=== PATIENT | male | born 1955 | race Caucasian/White ===

== ENCOUNTER 2018-03-11 05:58 | Inpatient (IN) | payer OTHER ==
[~2018-03-11 05:58] MED LIST: DiMENhydriNATE IV* 50 MG/ML VIAL IV PUSH PRN; Gabapentin CAP(*) 300 MG PO ONE; Morphine INJ* 2 MG/ML 1 ML SYRINGE (TWO MG - NEW SYRINGE VERSION) IV PRN; Naloxone* 0.4 MG/ML 1 ML VIAL IV PRN; PROCHLORPERAZINE INJ 5 MG/ML 2 ML VIAL IV PRN; Scopolamine 1.5 mg* PATCH TRANSDERM PRN; fentaNYL* 50 MCG/ML 2 ML VIAL (100 MCG VIAL) IV PRN; oxyCODONE/Acetamin 5/325 MG* TAB PO PRN
[2018-03-11] MEDS ORDERED: Buffered Lidocaine 0.9% SYRIN* 5 ML/SYR SYRINGE INTRADERM ONE (06:00)
[2018-03-11] MEDS ORDERED: Dexamethasone TAB* 4 MG PO ONE (06:00)
[2018-03-11] MEDS ORDERED: Ondansetron INJ* 2 MG/ML VIAL ONE ×2 (06:00→06:03)
[2018-03-11] MEDS ORDERED: Famotidine IV* 10 MG/ML 2 ML (20 mg) IV ONE (06:00)
[2018-03-11] MEDS ORDERED: Gabapentin CAP(*) 300 MG ONE (06:02)
[2018-03-11] MEDS ORDERED: Famotidine IV* 10 MG/ML 2 ML (20 mg) ONE (06:02)
[2018-03-11] MEDS ORDERED: Dexamethasone TAB* 4 MG ONE (06:02)
[2018-03-11] MEDS ORDERED: ceFAZolin 2 GM in NS PREMIX(*) 2 GM/100 ML BAG IVPB ONE (06:04)
[2018-03-11] MEDS ORDERED: Ondansetron ODT TAB* 4 MG ONE (06:04)
--- OUTSIDE RECORDS SUMMARY | 2018-03-11 06:04 | XMS REPORT ---
:1955 External Reference #:[id number] Author Organization [facility] Address [address] [facility] [place] [address] [place] [address] Phone [phone] Care Team Providers Name Role Phone Kayden Belle D.O. Primary Care Physician Unavailable Payers Type Date Identification Numbers Payment Provider Subscriber Commercial Effective: Policy Number: [id number] [employer] Americo Nixon 2012 Group Number: [id number] [id number] PayID: [id number] [place] [address] Problems Date Description Provider Status Onset: 09/07/2017 Arthralgia of the pelvic region and Derrek Diaz M.D. Active thigh Onset: 06/29/2014 Supraventricular premature beats Alyssa Schrader M.D. 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 Active Onset: 09/10/2013 Transient cerebral ischemia Alyssa Schrader M.D. Active Onset: 09/10/2013 Paroxysmal supraventricular tachycardia Alyssa Schrader M.D. 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 ETOH Use Drinks Alcoholic Beverages Rarely Smoking Patient is a former smoker quit in 1989 Daily Caffeine Consumes on average 2 cups of regular 2-3 cups daily coffee per day Exercise Type/Frequency Does not exercise Allergies, Adverse Reactions, Alerts Date Description Reaction Status Severity Comments 03/03/2013 Ibuprofen hives active 03/03/2013 Aspirin rash active 07/01/2013 Codeine active 07/04/2013 Atorvastatin myalgias active 09/26/2013 Azithromycin Urticaria, hives active 10/17/2013 Plavix Urticaria, Hives active 12/15/2013 Xyzal chest pain active per patient Medications Medication Date Status Form Strength Qnty SIG Indications Ordering Provider Cyclobenzaprine 09/07/ Active Tablets 10mg 60tab take 1 M25.551 Derrek HCL 2017 s tablet up Jeo, to three M.D. times a day as needed Diclofenac 11/09/ Active Tablets 50mg 1 tablet Alyssa Potassium 2014 daily Fay Schrader Bystolic / Active Tablets 5mg 30tab 1 po qd Unknown 0000 s Sertraline HCL / Active Tablets 50mg 30tab 1 po qd Unknown 0000 s Dicyclomine HCL / Active Capsules 10mg 40cap take one Unknown 0000 s capsule by mouth every six hours as needed Aspirin / Active Chewtabs 81mg 1 by mouth Unknown 0000 every day Omeprazole / Active Capsules 20mg 1 by mouth Unknown 0000 DR every day Meloxicam / Active Tablets 15mg 1 by mouth Unknown 0000 every day Losartan / Active Tablets 50mg 1 by mouth Unknown Potassium 0000 every day Pantoprazole 10/08/ Hx Solution 40mg 60uni 1 by mouth 530.81 Alyssa Sodium 2013 - Rec ts as needed ( Raciel 02/26/ has not M.D. 2018 taken in 2 years) Benadryl Allergy 09/26/ Hx Tablets 25mg 30tab 1-2 po prn Other 2013 - s Ordering 10/06/ Provider 2014 Clopidogrel 09/10/ Hx Tablets 75mg 30tab 1 tab po 435.9 Alyssa Bisulfate 2013 - s daily in am Raciel 10/07/ Fay 2014 Metoprolol 01/27/ Hx Tablets 50mg 30tab 1 po qd Alyssa Succinate ER 2013 - ER 24HR s Raciel 06/11/ Fay 2013 Plavix / Hx Tablets 75mg 30tab 1 po qd Unknown 0000 - s 2013 Atorvastatin / Hx Tablets 10mg 90tab 1 po qd Unknown Calcium 0000 - s 2013 Diovan / Hx Tablets 160mg 90tab 1/2 tab po Unknown 0000 - s daily ( ran 08/27/ out of 2018 medication 1 week ago) Nexium / Hx Capsules 40mg 90cap 1 po qd Unknown 0000 - DR s 2013 Tramadol HCL / Hx Tablets 50mg 100ta 2 tab po Unknown 0000 - bs prn 2013 Pradaxa / Hx Capsules 150mg 180ca po bid Jewel 0000 - santos Rudd, , PHD 2013 Pravastatin / Hx Tablets 10mg 90tab 1 po qd Unknown Sodium 0000 - s (starting 03/09/ on 07/12) 2015 Omeprazole / Hx Capsules 20mg 1 po bid Unknown 0000 - DR 2013 Dicyclomine HCL / Hx Capsules 10mg 30cap 1 tab po Unknown 0000 - s prn 2013 Tylenol Arthritis / Hx Tablets 650mg 100ta 2 by mouth Unknown Pain 0000 - ER bs every 8 07/04/ hours as 2014 needed Levocetirizine / Hx Tablets 5mg 1 po qd Unknown Dihydrochloride 0000 - 2013 Valsartan / Hx Tablets 80mg 1 by mouth Unknown 0000 - every day 2017 Vital Signs Date Vital Result Comment 02/27/2018 Height 74 inches 6'2" Weight 265.00 lb BP Systolic 126 mmHg BP Diastolic 72 mmHg Respiratory Rate 18 /min Pain Level 10 BMI (Body Mass Index) 34.0 kg/m2 10/04/2017 Height 74 inches 6'2" Weight 265.00 lb Heart Rate 80 /min BP Systolic Recheck 130 mmHg BP Diastolic Recheck 84 mmHg Respiratory Rate 16 /min Body Temperature 98.1 F BMI (Body Mass Index) 34.0 kg/m2 09/07/2017 Height 74 inches 6'2" Weight 255.00 lb Heart Rate 80 /min BP Systolic Recheck 132 mmHg BP Diastolic Recheck 84 mmHg Respiratory Rate 16 /min Body Temperature 98.0 F BMI (Body Mass Index) 32.7 kg/m2 01/10/2017 Height 74 inches 6'2" Weight 254.00 lb Heart Rate 80 /min BP Systolic Recheck 130 mmHg BP Diastolic Recheck 84 mmHg Respiratory Rate 16 /min Body Temperature 97.8 F BMI (Body Mass Index) 32.6 kg/m2 03/23/2016 Height 73 inches 6'1" Weight 254.00 lb with shoes Heart Rate 64 /min BP Systolic Sitting 136 mmHg LA reg cuff BP Diastolic Sitting 94 mmHg LA reg cuff BP Systolic Standing 132 mmHg LA reg cuff BP Diastolic Standing 90 mmHg LA reg cuff Respiratory Rate 16 /min BMI (Body Mass Index) 33.5 kg/m2 03/10/2016 Height 73 inches 6'1" Weight 254.00 lb with shoes Heart Rate 70 /min BP Systolic Sitting 136 mmHg LA, Lg cuff BP Diastolic Sitting 84 mmHg LA, Lg cuff BP Systolic Standing 130 mmHg LA BP Diastolic Standing 84 mmHg LA Respiratory Rate 14 /min BMI (Body Mass Index) 33.5 kg/m2 06/29/2014 Height 73 inches 6'1" Weight 256.00 lb w/boots Heart Rate 74 /min BP Systolic Sitting 124 mmHg Ra lg cuff BP Diastolic Sitting 82 mmHg Ra lg cuff BP Systolic Standing 134 mmHg Ra lg cuff BP Diastolic Standing 88 mmHg Ra lg cuff Respiratory Rate 14 /min BMI (Body Mass Index) 33.8 kg/m2 12/15/2013 Height 73 inches 6'1" Weight 254.00 lb with boots Heart Rate 64 /min BP Systolic Sitting 122 mmHg LA lg cuff BP Diastolic Sitting 80 mmHg LA lg cuff BP Systolic Standing 126 mmHg LA lg cuff BP Diastolic Standing 70 mmHg LA lg cuff Respiratory Rate 16 /min BMI (Body Mass Index) 33.5 kg/m2 11/17/2013 Height 73 inches 6'1" Weight 252.00 lb with shoes Heart Rate 70 /min BP Systolic Sitting 120 mmHg Ra lg cuff BP Diastolic Sitting 84 mmHg Ra lg cuff BP Systolic Standing 120 mmHg Ra lg cuff BP Diastolic Standing 82 mmHg Ra lg cuff Respiratory Rate 16 /min BMI (Body Mass Index) 33.2 kg/m2 10/17/2013 Height 73 inches 6'1" Weight 246.00 lb Heart Rate 72 /min BP Systolic Sitting 126 mmHg LA reg cuff BP Diastolic Sitting 88 mmHg LA reg cuff BP Systolic Standing 132 mmHg LA BP Diastolic Standing 92 mmHg LA Respiratory Rate 16 /min BMI (Body Mass Index) 32.5 kg/m2 10/08/2013 Height 73 inches 6'1" Weight 240.00 lb Heart Rate 80 /min BP Systolic 138 mmHg right, lg cuff BP Diastolic 94 mmHg right, lg cuff BP Systolic Sitting 138 mmHg left BP Diastolic Sitting 88 mmHg left BP Systolic Standing 112 mmHg rightt BP Diastolic Standing 80 mmHg rightt Respiratory Rate 20 /min BMI (Body Mass Index) 31.7 kg/m2 09/26/2013 Height 73 inches 6'1" Weight 242.00 lb Heart Rate 72 /min BP Systolic Sitting 124 mmHg LA lg cuff BP Diastolic Sitting 84 mmHg LA lg cuff BP Systolic Standing 126 mmHg BP Diastolic Standing 82 mmHg Respiratory Rate 14 /min BMI (Body Mass Index) 31.9 kg/m2 09/10/2013 Height 64 inches 5'4" Weight 243.00 lb Heart Rate 60 /min BP Systolic Sitting 114 mmHg Ra large cuff BP Diastolic Sitting 80 mmHg Ra large cuff BP Systolic Standing 112 mmHg Ra BP Diastolic Standing 76 mmHg Ra Respiratory Rate 16 /min BMI (Body Mass Index) 41.7 kg/m2 08/26/2013 Heart Rate 64 /min BP Systolic Sitting 128 mmHg BP Diastolic Sitting 76 mmHg Respiratory Rate 16 /min 07/04/2013 Height 72 inches 6'0" Weight 228.50 lb Heart Rate 64 /min BP Systolic Sitting 130 mmHg left arm, large cuff BP Diastolic Sitting 74 mmHg left arm, large cuff BP Systolic Standing 126 mmHg left arm, large cuff BP Diastolic Standing 74 mmHg left arm, large cuff Respiratory Rate 16 /min BMI (Body Mass Index) 31.0 kg/m2 07/01/2013 Heart Rate 64 /min BP Systolic Sitting 108 mmHg BP Diastolic Sitting 76 mmHg Respiratory Rate 16 /min Results Test Date Test Result H/L Range Note Laboratory test 03/16/2016 Surgical Pathology SEE RESULT BELOW 1 finding 1 SEE RESULT BELOW Name: AMERICO NIXON : [address]: Alyssa Schrader MD Acct: [id number] Unit: [id number] AGE: 60 Location: [facility] Re03/16/16 SEX: M Status: REG REF SPEC: [id number] TIFFANY: 03/16/[address]: Alyssa Schrader MD REQ: [id number] RECD: 03/16/16 STATUS: SOUT _ ORDERED: LEVEL I FINAL DIAGNOSIS Event monitor, removal: Foreign body (event monitor) (Gross diagnosis). PRE-OPERATIVE DIAGNOSIS Presence of other cardiac implant POST-OPERATIVE DIAGNOSIS Event monitor explant. GROSS DESCRIPTION The specimen is received fresh with no source identified, and consists of a 6.1 x 1.8 x 0.7 cm silver metallic medical coder. The following inscription is identified: [employer] REVEAL XT MODEL 9529 SN [id number]. Per established hospital medical staff protocol, no tissue is submitted. Gross only. Signed (signature on file) Jade Tierney MD 04/26 0905 END OF REPORT * ML=Testing performed at Main Lab DEPARTMENT OF PATHOLOGY, [address] [place] [address] Charles Mcgill M.D. Director [facility] # [id number] Procedures Date CPT Code Description Status 12/20/2017 01833 Sleep Study Unattended,HRT Rate,Oxygen Sat,Resp Completed Effort/Airflow 01/10/2017 25049 Nasal Endoscopy, Diagnostic Completed 03/16/2016 08622 Removal Loop Recorder Completed 03/10/2016 67566 Interrogation Device Eval,Implantable Loop Recorder Completed System 06/09/2014 90101 Interrogation Device Eval,Implantable Loop Recorder Completed System 12/15/2013 44295 Interrogation Device Eval,Implantable Loop Recorder Completed System 10/15/2013 68946 ECHO Stress Test Incl Perf Contiuous ekg Monitoring Completed W/Phys Superv 10/08/2013 67611 Interrogation Device Eval,Implantable Loop Recorder Completed System 09/08/2013 95388 Interrogation Device Eval,Implantable Loop Recorder Completed System 07/09/2013 29441 Interrogation Device Eval,Implantable Loop Recorder Completed System 07/04/2013 25611 EKG Tracing & Interpretation Completed 06/03/2013 68388 Loop Recorder Device Eval W/Iterative Adj Implant Loop Completed Recorder 04/17/2013 21532 Interrogation Device Eval,Implantable Loop Recorder Completed System 03/24/2013 32322 Interrogation Device Eval,Implantable Loop Recorder Completed System 02/21/2013 50173 Implant Cardiac Loop Recorder Completed 02/05/2013 86021 Cardiac Event Monitor Completed 01/29/2013 97814 Holter Monitoring 24 HR New Completed 01/27/2013 48966 Stress Test Completed 01/24/2013 47275 EKG, Interpretation Only Completed 01/23/2013 40591 Color Flow Doppler/Interp & Reprt Completed 01/23/2013 78244 Pulse Wave/Continuous-Interp.RPT Completed 01/23/2013 23433 Echocardiography, Transesophageal, Real Time W/Image 2D Completed W/W/O M-M Encounters Type Date Location Provider CPT E/M Dx Office Visit 10/04/2017 [facility] Derrek Diaz 47570 M25.551 8:15a Of [facility] AT [facility] M85.88 Office Visit 09/07/2017 1:00p [facility] Derrek Diaz 48485 M25.551 Of [facility] AT [facility] [place] M85.88 Office Visit 01/10/2017 1:00p [facility] Of [facility] Ozzie Mcdowell M.D. 69018 J31.0 AT [facility] R09.82 Office Visit 03/10/2016 3:15p [facility] Alyssa Schrader M.D. 68037 Z95.818 [facility] I63.40 I10 Office Visit 06/29/2014 3:30p [facility] Alyssa Schrader M.D. 62385 427.61 [facility] Office Visit 12/15/2013 3:30p [facility] Of YVONNE Fishman 01591 427.0 [facility] 401.9 435.9 785.1 Office Visit 10/17/2013 1:30p [facility] YVONNE Fishman 02394 530.81 427.0 434.11 Office Visit 10/08/2013 9:00a [facility] YVONNE Fishman 36773 786.50 530.81 995.3 Office Visit 09/26/2013 3:00p [facility] YVONNE Fishman 73644 401.9 995.3 436 Office Visit 09/10/2013 8:00a [facility] Alyssa Schrader M.D. 81081 427.0 [facility] 435.9 401.9 Office Visit 08/26/2013 2:30p [facility] Amos Judge, 29290 434.11 Services Of [facility] M.D. Office Visit 07/04/2013 9:45a [facility] Alyssa Schrader M.D. 67002 427.0 785.1 401.9 Office Visit 07/01/2013 9:30a [facility] Am[facility] Judge 62538 434.11 Services Of [facility] M.D. Office Visit 02/11/2013 10:00a [facility] Amos Judge 13033 434.11 Services Of [facility] M.D. Office Visit 01/24/2013 7:38a [facility], Jh Henderson, 33342 435.9 [facility] 401.9 278.00 530.81 Office Visit 01/23/2013 7:37a [facility], 77507 435.9 [facility] N[facility] 401.9 278.00 530.81 Office Visit 01/22/2013 10:29a [facility] Amos Judge, 13671 435.8 Services Of [facility] Office Visit 01/22/2013 7:37a [facility], 77266 435.9 [facility] N[facility] 401.9 278.00 530.81 Plan of Care Future Appointment(s):03/11/2018 7:30 am - Derrek Diaz M.D.04/16/2018 11: 15 am - Derrek Diaz M.D. at [facility] AT [facility]
[2018-03-11] MEDS ORDERED: fentaNYL* 50 MCG/ML 2 ML VIAL (100 MCG VIAL) ONE (07:02)
[2018-03-11] MEDS ORDERED: Midazolam* 1 MG/ML 10 ML VIAL (10 MG) ONE (07:03)
[2018-03-11] MEDS ORDERED: KETAMINE HCL* 50 MG/ML 10 ML VIAL ONE (07:03)
[2018-03-11] MEDS ORDERED: Tranexamic Acid 1,000 MG/10 ML SDV IV ONE (07:15)
[2018-03-11] MEDS ORDERED: ceFAZolin 1 GM in Dextrose (*) 1 GM/50 ML BAG IVPB ONE (07:18)
[2018-03-11] MEDS ORDERED: Bupivacaine 0.25% EPI 200,000* 30 ML SDV ONE (07:34)
[2018-03-11] MEDS ORDERED: Bupivacaine 0.5% SDV PF* 30ML VIAL ONE (08:58)
[2018-03-11] MEDS ORDERED: Scopolamine 1.5 mg* PATCH ONE (08:58)
[2018-03-11] MEDS ORDERED: Lidocaine 2% PF * 5 ML VIAL ONE (08:58)
[2018-03-11] MEDS ORDERED: Phenylephrine INJ* 10 MG/ML 1 ML VIAL (10 MG) ONE (08:58)
[2018-03-11] MEDS ORDERED: Propofol* 500 MG/50 ML BTL ONE ×2 (08:58→10:59)
[2018-03-11] MEDS ORDERED: hydrALAZINE IV* 20 MG/ML VIAL ONE (09:05)
[2018-03-11] MEDS ORDERED: Bacitracin IV* 50,000 UNITS INJ ONE (09:58)
[2018-03-11] MEDS ORDERED: Bacitracin OINTMENT* 0.5% 0.5 oz TUBE ONE (10:00)
[2018-03-11] MEDS ORDERED: oxyCODONE TAB* 5 MG TAB PO PRN (11:53)
[2018-03-11] MEDS ORDERED: Ondansetron INJ* 2 MG/ML VIAL IV PRN (11:53)
[2018-03-11] MEDS ORDERED: diPHENhydraMINE PO* 25 MG PO PRN (11:53)
[2018-03-11] MEDS ORDERED: diPHENhydraMINE IV* 50 MG/ML 1 ml VIAL (BENADRYL) IV PRN (11:53)
[2018-03-11] MEDS ORDERED: Magnesium Hydroxide LIQ* 30 ML UDC PO PRN ×2 (11:53)
[2018-03-11] MEDS ORDERED: Ondansetron ODT TAB* 4 MG PO PRN (11:53)
[2018-03-11] MEDS ORDERED: Cyclobenzaprine TAB* 10 MG PO PRN (11:53)
[2018-03-11] MEDS ORDERED: Morphine VIAL* 4 MG/ML VIAL (1 ml vial) IV PRN ×2 (11:53→21:00)
[2018-03-11] MEDS ORDERED: CMC:Lactase Enzyme (NF) 3,000 UNIT TAB PO PRN (12:00)
[2018-03-11] MEDS ORDERED: traMADol TAB* 50 MG PO SCH (12:00)
[2018-03-11] MEDS ORDERED: Acetaminophen TAB* 325 MG PO SCH (12:00)
[2018-03-11] MEDS ORDERED: D5W 1/2 NS 1000 ML BAG* 1,000 ML IV SCH (12:00)
[2018-03-11] MEDS ORDERED: Heparin VIAL(*) 5000 UNITS/ML VIAL (FIVE THOUSAND) SUBCUT SCH (12:00)
--- NOTE | 2018-03-11 12:49 | RAD ---
Indication: Postop bilateral knee joint replacement. Comparison: February 27, 2018 radiographs. Technique: RIGHT knee: Bilateral AP and crosstable lateral views of the knees. views. Report: RIGHT knee prosthesis in place. No periprosthetic fracture evident. Normal articular alignment. Anterior cutaneous sanam. Fluid and gas within the joint space and anterior soft tissues. LEFT total knee prosthesis in place. Up to 4 mm lateral position of the tibial plateau component relative to the jackson bone margins. Negative for periprosthetic fracture. Anterior cutaneous sanam. Fluid and gas within the joint space and anterior soft tissues. IMPRESSION: #. Postsurgical change of bilateral knee replacement as described. #. Negative for periprosthetic fracture.
[2018-03-11] MEDS ORDERED: oxyCODONE/Acetamin 5/325 MG* TAB PO PRN (15:37)
[2018-03-11] MEDS ORDERED: Acetaminophen TAB* 325 MG PO PRN (15:40)
--- NOTE | 2018-03-11 16:48 | CONS ---
CC: Dr. Diaz; Dr. Belle * CONSULTATION REPORT: DATE OF CONSULT: 03/11/18 REQUESTING PHYSICIAN IN CONSULT: Dr. Diaz. ATTENDING PHYSICIAN WHILE IN THE HOSPITAL: Dr. Rc Villegas (report dictated by Bernard Henderson NP). PRIMARY CARE PROVIDER: Dr. Belle. REASON FOR CONSULT: Evaluation of medical management of comorbid medical problems. HISTORY OF PRESENT ILLNESS: I will refer you to Dr. Diaz's H and P for further details. In short, Mr. Garner is a 62-year-old male patient, who has a history of TIA, hypertension, hyperlipidemia, GERD, degenerative joint disease , anxiety, and depression. He presents to Dr. Diaz's service with significant bilateral knee pain for some time, found to have severe arthritis. He had failed conservative therapy and he elected to have bilateral total knee replacement done today which he underwent. Because of his medical complexities , we were asked to evaluate in consult. He was evaluated in the PACU. The patient says that he is feeling well. He denies having any chest pain or shortness of breath. Says he does not feel lightheaded or dizzy. He denies having any nausea. He denies any vomiting. There is no abdominal discomfort. He says he cannot feel his legs just yet. He did have spinal anesthesia, but he says he is not really having any pain currently, but because of his complexity, again we were asked to evaluate in consult. PAST MEDICAL HISTORY: Significant for: 1. TIA. 2. Hypertension. 3. Hyperlipidemia. 4. GERD. 5. Anxiety. 6. Degenerative joint disease. 7. Depression. PAST SURGICAL HISTORY: 1. He has had hemorrhoidectomy. 2. He has had shoulder arthroscopy. 3. He has had plantar fascial release. 4. Carpal tunnel. 5. He has had right knee arthroscopy. 6. Right elbow surgery. MEDICATIONS: Home medications include: 1. Difolnec 50 mg p.o. at bedtime. 2. Zoloft 50 mg daily. 3. Omeprazole 20 mg daily. 4. Bystolic 5 mg a day. 5. Cozaar 50 mg at bedtime. 6. Lactaid 3000 units p.o., take as directed. 7. Aspirin 81 mg daily. ALLERGIES TO MEDICATIONS: Include CODEINE, IBUPROFEN, TRAMADOL, AMOXICILLIN, AZITHROMYCIN, and LACTOSE. FAMILY HISTORY: He says his mother has severe spinal stenosis and lives in a mcc, but otherwise healthy. Father had a history of dementia and stomach tumor, he has . SOCIAL HISTORY: He does not smoke, rarely drinks alcohol. Surrogate decision maker is his . REVIEW OF SYSTEMS: There is no documented fever. He denies having any significant weight change. There is no double vision. He denies having any ear discharge. He denied having any rhinorrhea. There is no sore throat, no thyroid enlargement. Denies having any chest pain. There is no orthopnea, there is no nocturnal dyspnea. He denies having any abdominal pain. No nausea , no vomiting. No dysuria, there is no frequency. No seizure, no loss of consciousness. No pruritus. Review of 14 systems completed. All others negative. PHYSICAL EXAM: Vital Signs: Blood pressure 111/58, pulse 63, respirations 15, O2 sat 97%, and temperature 97.9. General: At this time, Ms. Garner is a 62- year- old male patient. He is sitting in the ED stretcher. He does not appear to be in any acute distress. He appears to be well nourished and well developed. HEENT: Head: Atraumatic and normocephalic. Eyes: EOMs are intact. Sclerae anicteric and not pale. Neck was supple. Throat: Oral mucosa appears to be moist. No oropharyngeal erythema. Heart: Sounds S1, S2. He had a regular rate and rhythm. No murmurs, rubs, or gallops. Lungs: Clear to auscultation bilaterally. There were no wheezes, rales, or rhonchi. Abdomen was soft, flat, nontender. Bowel sounds were present. Extremities: He is unable to move his lower extremities as he did have a spinal anesthesia. He has good distal CSM checks. He has no peripheral edema. He is moving the upper extremities with 5/5 strength. Neurologically, he is awake, he is alert, and he is oriented x3. Tongue is midline. Correspondence Representative were equal. He had no gross focal deficits. His skin is grossly intact. DIAGNOSTIC STUDIES/LAB DATA: Preop labs: WBC 6.7, RBC of 5.49, hemoglobin of 16.7, hematocrit of 48, platelet count of 176. INR 0.94, PTT of 31.6. His sodium was 141, potassium was 4.4, chloride of 106, bicarb 31, BUN 22, creatinine 1.12, his glucose was 84. Urine was obtained, it was negative preop. He did have a preop EKG showing normal sinus rhythm rate of 59, no ST elevations or T-wave inversions were noted. He had a preop chest x-ray which showed hyperinflation consistent with COPD with no active cardiopulmonary disease. Old medical records were reviewed. ASSESSMENT AND PLAN: Mr. Garner is a 62-year-old male patient, he is evaluated in the PACU setting, after having bilateral total knee replacement. We were asked to evaluate in consult given his medical complexity. My recommendations at this point are: 1. Status post bilateral total knee replacement. I will defer the management to Dr. Diaz and his team. 2. History of transient ischemic attack. Continue with secondary prevention with aspirin. 3. Hypertension. Continue his current medical regimen with exception of holding the Cozaar. We will continue his Bystolic withhold parameters. 4. Hyperlipidemia, he is currently not on statin. He can follow with his PCP, in the setting of transient ischemic attack, may consider this and aggressive lipid control but again I will defer management to his PCP. 5. History of gastroesophageal reflux disease. Continue PPI therapy. 6. Anxiety and depression. Continue his current medical regimen. 7. Degenerative joint disease. Continue p.r.n. pain medications and follow with his PCP. 8. DVT prophylaxis. He is high risk. He has been placed on heparin subcu. 9. Code status. Full code. 10. Fluids, electrolytes, and nutrition. I recommend a heart healthy diet. TIME SPENT: On the consult was 60 minutes, greater than half the time was spent [id number] with the patient obtaining my history and physical, other half time was spent going over the plan of care with the patient and implementing plan of care. I did discuss the plan of care with my attending, Dr. Villegas; he is in agreement. BERNARD HENDERSON, [place] [id number]/[facility] #: [id number] ALIA
[2018-03-11] MEDS ORDERED: Warfarin TAB(*) 10 MG PO ONE (17:00)
[2018-03-11] MEDS: CMC:Nebivolol TAB (NF) 2.5 MG TAB PO SCH (17:16)
[2018-03-11] MEDS: ceFAZolin 1 GM in Dextrose (*) 1 GM/50 ML BAG IVPB SCH (17:26)
[2018-03-11] MEDS ORDERED: NON FORMULARY MED* (Losartan Potassium [Cozaar] 50 MG) PO SCH (18:00)
[2018-03-11] MEDS ORDERED: Nebivolol TAB (NF) 2.5 MG TAB PO SCH (18:00)
[2018-03-11] MEDS ORDERED: Morphine INJ* 4 MG/ML 1 ML SYRINGE (NEW SYRINGE VERSION) IV ONE (21:00)
[2018-03-11] MEDS: oxyCODONE/Acetamin 5/325 MG* TAB PO PRN (21:14)
[2018-03-11] MEDS: Docusate CAP* 100 MG PO SCH (21:15)
[2018-03-11] MEDS: oxyCODONE TAB* 5 MG TAB PO PRN (23:20)
[2018-03-12] MEDS: oxyCODONE/Acetamin 5/325 MG* TAB PO PRN ×6 (01:16→23:25)
[2018-03-12] MEDS: ceFAZolin 1 GM in Dextrose (*) 1 GM/50 ML BAG IVPB SCH ×2 (01:20→08:46)
--- NOTE | 2018-03-12 03:18 | OP ---
DATE OF OPERATION: 03/11/18 - ROOM #343 DATE OF : 53 SURGEON: Derrek Diaz MD COOKIE BREAKER: Dulce Lopez RPA ANESTHESIA: Spinal/epidural, regional and sedation. PRE-OP DIAGNOSIS: Osteoarthritis, bilateral knees. POST-OP DIAGNOSIS: Osteoarthritis, bilateral knees. OPERATIVE PROCEDURE: Right and left total knee arthroplasty. INDICATIONS: Mr. Garner is a 62-year-old male who has been having bilateral knee pain for several years. The right knee had given him more troubles and he had undergone a knee arthroscopy elsewhere back in January 2018. He was told the arthritis in the joint would probably need a knee replacement. He has had worsening pain since the arthroscopy and has been unable to get back to work and other activities. He presented to the office interested in a second opinion. X-ray showed that he was [id number] in the patellofemoral joint, and had significant narrowing in the medial compartment of both knees. He reports that his left knee was about 6 months behind how his right knee failed. He is very interested in knee replacement surgery. We did talk some about a partial replacement where patellofemoral replacement would be quicker and easier for him to recover from, but he did not want to come back for another surgery in 2 to 3 years. I discussed with him and that a total knee arthroplasty should work well to decrease his pain and improve his function. This way, we will just do one surgery and, hopefully, this would work well for him for the next 20 years. Risk of surgery such as infection, scar formation, stiffness, DVT, pulmonary embolism, hardware failure and continued pain were some of the risks discussed. I also tried to advise him to go with one knee at a time as bilateral knees, I believe are much harder to rehab and recover from. He reports though that with work and trying to get back to activities, he would like to have both done, so he has one rehab and then would not have to come back and would not have to extend the time that he is out of work. He had been declared medically optimized and wished to proceed. ESTIMATED BLOOD LOSS: Less than 50 cc. COMPLICATIONS: None. HARDWARE: Franco non-cemented total knee replacement, #6 femur and #6 tibia with 9 mm poly and 35 mm oblong patella both right and left were the same sizes. DESCRIPTION OF PROCEDURE: The patient had an adductor canal block on the right and left placed in the holding area. He was then brought back to the OR and spinal epidural anesthesia was established. Sanders catheter was placed. Tourniquet was placed over the right and left proximal thighs and both were used during the case. Total tourniquet time on the right was 70 minutes and on the left was 77 minutes. Bilateral knees were prepped and then draped. Esmarch was used to exsanguinate the right as this was one that hurt him more and tourniquet was raised. Midline incision was made centered about the patella carried down to the medial side of the tibial tubercle. Incision was carried down through the skin and subcutaneous bursa. Small bleeders encountered were ligated using electrocautery. Sharp parapatellar arthrotomy was made and quite a bit of thick clear yellowish joint fluid was encountered. Soft tissues were sharply elevated from the medial side of the tibia and the fat pad was sharply excised. He was seen where he was bone on bone in the patellofemoral joint and there was significant wear in the medial compartment. Patella measured 24 mm in thickness and a nice 8 to 9 mm cut was taken. Patella was easily subluxated laterally, the knee was flexed up. Step drill was used in the femoral canal and the intramedullary guide was placed. Guide was adjusted until it was parallel with the epicondyle and then this was pinned into place. Distal femoral cutting guide was then pinned into place and I had mentioned how the cutting guide was taking quite a bit from the medial side and almost none from the lateral side, cut was taken and then was noticed that this was the left cutting block and not the right. Right cutting block was placed and this one sat much better and femoral cut was redone. At this time, I was able to come all the way down into the notch and take some of the lateral femoral condyle as is supposed to take. There was about a 5 mm width of the medial femoral condyle that was angled downward because of the incorrect angle, but I thought this was an insignificant amount of contact area. Femur was sized and he has had perfectly for a 6. This corroborated well with preoperative templating. Six cutting guide was pinned into place and the inferior and posterior femoral cuts followed by the chamfer cuts were all taken. Nice cuts were obtained. Attention was turned to the proximal tibia. Step drill was use at the tibial canal and the medullary guide was placed. Cutting guide was placed and adjusted until it was parallel with the anterior spine of the tibia and drop elzbieta and right to the base of the second metatarsal. Cutting guide was then pinned into place and the tibial cut was taken. Nice cut was obtained. Meniscus was also sharply excised. Spacer block was then set and he seemed to fit in nicely with a 9 for both flexion and extension. Tibia sat nicely with a 6 and proximal tibia and the tibia was punched. Number 6 femur was impacted into place and the notch cut was finished and the drill holes were placed. Trial instrumentation was placed and he came out nicely into full extension and easily flexed passed on 135 degrees as I could bring his heel all the way back to his buttock. Patella tracking was perfect. Patella was sized nicely at a 35. Holes were drilled. Instrumentation was called for and the tibia followed by the femur and patella were all impacted into place. He was trialed again with a 9 and had the same wonderful motion and stability. Nine polyethylene was called for and then snapped into place. The knee was copiously pulse lavaged. Posterior condyles were injected with 10 cc of 0.25% Marcaine on both the right side and left-side and additional 10 cc was injected in the lateral gutter. Parapatellar arthrotomy was closed using interrupted #1 Vicryl sutures and the tourniquet was let down. No significant bleeding was encountered. Subcutaneous tissues were reapproximated with 2-0 Vicryl. Skin was closed using sanam. Knee just wrapped and attention was turned to the left knee. Discussion was had with anesthesia, knee was stable and doing well so it appeared we would be safe with proceeding. Esmarch was used to exsanguinate the left leg and midline incision was made. Similarly parapatellar arthrotomy was made and not as much of clear yellowish thick joint fluid was encountered but again just with incising the capsule there was still a gush. Soft tissue sharply elevated from the medial side and fat pad was sharply excised. Patella cut was taken and patella was easily subluxated laterally. Drill was used to open intramedullary canal in the femur and the intramedullary guide was placed. Guide was adjusted until the rotation appeared perfect and the edges were parallel with the epicondyles. Distal femoral cutting guide was pinned to place and distal femoral cut was taken. It appeared nice cut was obtained. He sized nicely for a 6 and a 6 cutting block was placed. Anterior and posterior femoral cuts followed by the chamfer cuts were all taken . Attention was turned to the tibia. Step drill was used to open the tibial canal and symmetric guide was placed. Outrigger was assembled and adjusted until it appeared it would take 2 mm from medial side and the alignment then drop elzbieta sat nicely right along the anterior spine of the tibia. Tibial cut was taken, but it could be seen where he had a little more sclerotic bones and I skived upwards a little bit. This was moved downwards for a 2 mm re-cut. With the sizer then placed, he was still just a little bit snug in flexion and with extension he was perfect , but I thought this was a little bit tight. Proximal tibia was taken for another 2 mm re-cut and now that in extension he just had a little bit of wobble that I like. Tibia was sized and he sat nicely for a 6 proximal tibia was punched. Number 6 femur was placed and the notch cut was finished and the drill holes were drilled. Six trial was placed and he came out nicely in a full extension and flexed quite well. Trial instrumentation was removed. The knee was copiously pulse lavaged. Patella also have been sized and he sat again for 35. Instruments were called for and the tibia followed by femur and patella were all impacted into place. 9 mm polyethylene was snapped into place. The knee was again closely pulse lavaged. Parapatellar arthrotomy was repaired using interrupted # 1 Vicryl sutures. The tourniquet was let down. A little bit of bleeding was encountered but there was no pulsatile flow. Knee was again pulse lavaged and the subcutaneous tissues were approximated 2-0 Vicryl, skin was closed using sanam. Sterile dressing and Cryo/Cuff were applied to both knees. The patient was then awakened, stable, and transferred to the recovery room. [id number]/[facility] #: [id number] ALIA
[2018-03-12] MEDS: oxyCODONE TAB* 5 MG TAB PO PRN ×4 (03:53→16:30)
[2018-03-12 05:02] LABS: Hematocrit 41 % (42-52); Hemoglobin 13.8 g/dl (14.0-18.0); Mean Platelet Volume 8.2 um3 (7.4-10.4); Platelet Count 180 10^3/ul (150-450)
[2018-03-12 05:07] LABS: INR 1.25 (0.77-1.02)
[2018-03-12 05:18] LABS: EGFR Non-African American 66.2 (>60)
[2018-03-12] MEDS: Vitamin THERAPEUTIC TAB PO SCH (08:47)
[2018-03-12] MEDS: Omeprazole CAP* 20 MG PO SCH (08:48)
[2018-03-12] MEDS: Docusate CAP* 100 MG PO SCH ×2 (08:48→19:59)
[2018-03-12] MEDS: Sertraline* 50 MG TAB PO SCH (08:48)
--- NOTE | 2018-03-12 11:54 | PN ---
Progress Note - Progress Note Date of Service: 03/12/18 SOAP: Subjective: [Pt was seen this morning sitting up in bed. He states that he had increased pain last night and was having trouble sleeping. He states that today he is feeling a bit better and finds that with the new pain medication that it is more manageable. He denies any nausea, vomiting, SOB or chest pain. ] Objective: [General: A&Ox3, NAD MSK: BLE: Dressings are both clean, dry and intact. +df/pf bilat. calves are soft and non tender. 2+ DP and PT pulse bilaterally. NVI distally. ] Vital Signs Temp 98.6 F 03/12/18 07:23 Pulse 69 03/12/18 07:23 Resp 16 03/12/18 10:11 BP 124/69 03/12/18 07:23 Pulse Ox 97 03/12/18 07:23 Intake & Output 03/11/18 03/12/18 03/12/18 18:59 06:59 18:59 Intake Total 3360 2207 Output Total 1500 2075 Balance 1860 132 Intake: IV Fluids 3300 977 CEFAZOLIN 3GM 200 D5W 1/2 NS 977 LR 3000 TRANEXAMIC ACID 1GM 100 IVPB 110 ABX - CEFAZOLIN 110 Oral 60 1120 Output: Urine 850 Sanders 1500 1225 Other: # Bowel Movements 0 Assessment: [POD 1 bilateral total knee arthroplasty ] Plan: [- Continue with current pain medication - PT/OT - INR of 1.25, 8mg of coumadin tonight]
[2018-03-12] MEDS: Heparin VIAL(*) 5000 UNITS/ML VIAL (FIVE THOUSAND) SUBCUT SCH ×2 (12:10→20:03)
[2018-03-12] MEDS ORDERED: Ketorolac INJ* 15 MG/ML 1 ML VIAL IV PUSH PRN (14:37)
--- NOTE | 2018-03-12 14:55 | PN ---
Subjective Date of Service: 03/12/18 Interval History: Mr. Garner reports doing well. His pain is well controlled. Sanders catheter removed this AM, has voided since. Has been OOB to did PT earlier today. Denies chest pain, palpitations or SOB. He has no complaints today. Family History: Unchanged from Admission Social History: Unchanged from Admission Past Medical History: Unchanged from Admission Objective Active Medications: Acetaminophen (Tylenol Tab*) 975 mg PO Q8H PRN PRN Reason: FEVER/PAIN Aspirin (Aspirin Ec Tab*) 81 mg PO QPM [facility] Bisacodyl (Dulcolax Supp*) 10 mg HI DAILY PRN PRN Reason: constipation Cyclobenzaprine HCl (Flexeril Tab*) 10 mg PO TID PRN PRN Reason: SPASMS Last Admin: 03/11/18 20:13 Dose: 10 mg Diphenhydramine HCl (Benadryl Iv*) 25 mg IV Q6H PRN PRN Reason: itching Diphenhydramine HCl (Benadryl Po*) 25 mg PO Q6H PRN PRN Reason: itching Docusate Sodium (Colace Cap*) 100 mg PO BID [facility] Last Admin: 03/12/18 08:48 Dose: 100 mg Heparin Sodium (Porcine) (Heparin Vial(*)) 5,000 units SUBCUT Q8H [facility] Last Admin: 03/12/18 12:10 Dose: 5,000 units Dextrose/Sodium Chloride (D5w 1/2 Ns 1000 Ml Bag*) 1,000 mls @ 100 mls/hr IV PER RATE [facility] Last Admin: 03/12/18 01:18 Dose: 100 mls/hr Ketorolac Tromethamine (Toradol Inj*) 15 mg IV PUSH Q6H PRN PRN Reason: PAIN - MODERATE Lactase (Lactaid Fast Act (Nf)) 3,000 unit PO .SEE INSTRUCTIONS PRN; Protocol PRN Reason: Lactose intolerant Lactulose (Lactulose*) 30 ml PO BID [facility] Last Admin: 03/12/18 08:49 Dose: 30 ml Magnesium Hydroxide (Milk Of Magnesia Liq*) 30 ml PO BID PRN PRN Reason: CONSTIPATION Magnesium Hydroxide (Milk Of Magnesia Liq*) 30 ml PO Q6H PRN PRN Reason: constipation Morphine Sulfate (Morphine Vial*) 4 mg IV Q2H PRN PRN Reason: PAIN - BREAKTHROUGH Last Admin: 03/11/18 22:45 Dose: 4 mg Multivitamins (Theragran Tab*) 1 tab PO DAILY [facility] Last Admin: 03/12/18 08:47 Dose: 1 tab Nebivolol (Bystolic Tab (Nf)) 5 mg PO QPM [facility] Last Admin: 03/11/18 17:16 Dose: 5 mg Omeprazole (Prilosec Cap*) 20 mg PO QAM [facility] Last Admin: 03/12/18 08:48 Dose: 20 mg Ondansetron HCl (Zofran Inj*) 4 mg IV Q6H PRN PRN Reason: nausea Ondansetron HCl (Zofran Odt Tab*) 4 mg PO Q6H PRN PRN Reason: NAUSEA Oxycodone HCl (Roxycodone Tab*) 10 mg PO Q4H PRN PRN Reason: PAIN - SEVERE Last Admin: 03/12/18 12:09 Dose: 10 mg Oxycodone/Acetaminophen (Percocet 5/325 Tab*) 1 tab PO Q4H PRN PRN Reason: PAIN - MODERATE Last Admin: 03/11/18 17:16 Dose: 1 tab Oxycodone/Acetaminophen (Percocet 5/325 Tab*) 2 tab PO Q4H PRN PRN Reason: PAIN - MODERATE TO SEVERE Last Admin: 03/12/18 14:30 Dose: 2 tab Pharmacy Profile Note (Coumadin Daily Reminder*) 1 note FOLLOW UP 1700 [facility] Last Admin: 03/11/18 17:17 Dose: 1 note [facility] ([facility]*) [facility] Last Admin: 03/12/18 08:48 Dose: 50 mg Warfarin Sodium (Coumadin Tab(*)) 8 mg PO ONCE@1700 [facility]; Protocol Stop: 03/12/18 17:01 Vital Signs - 8 hr 03/12/18 03/12/18 03/12/18 07:23 07:58 08:00 Temperature 98.6 F Pulse Rate 69 Respiratory 16 16 16 Rate Blood Pressure 124/69 (mmHg) O2 Sat by Pulse 97 Oximetry 03/12/18 03/12/18 03/12/18 08:01 10:11 11:55 Temperature 99.0 F Pulse Rate 66 Respiratory 16 16 16 Rate Blood Pressure 131/77 (mmHg) O2 Sat by Pulse 95 Oximetry 03/12/18 03/12/18 12:09 14:30 Temperature Pulse Rate Respiratory 16 16 Rate Blood Pressure (mmHg) O2 Sat by Pulse Oximetry Oxygen Devices in Use Now: None Appearance: Appears comfortable and in NAD Eyes: No Scleral Icterus, PERRLA Ears/Nose/Mouth/Throat: Clear Oropharnyx, Mucous Membranes Moist Neck: NL Appearance and Movements; NL JVP, Trachea Midline Respiratory: Symmetrical Chest Expansion and Respiratory Effort, Clear to Auscultation Cardiovascular: NL Sounds; No Murmurs; No JVD, RRR Abdominal: NL Sounds; No Tenderness; No Distention Extremities: No Edema Neurological: Alert and Oriented x 3 Nutrition: Taking PO's Result Diagrams: 03/12/18 04:47 03/12/18 04:47 Additional Lab and Data: . Microbiology and Other Data: . Diagnostic Imaging: . EKG Data: . Assess/Plan/Problems-Billing Assessment: A 62 y/o male with PMH HTN, HLD, TIA, depression and osteoarthritis, who is POD# 1 s/p elective bilateral knee replacement, clinically stable and doing well. - Patient Problems (1) Status post bilateral knee replacements Current Visit: Yes Status: Acute Comment: - Management per ortho team - Continue PT - Pain well controlled (2) HTN (hypertension) Current Visit: Yes Status: Acute Comment: - Continue Bystolic, hold Cozaar - Normotensive today (3) HLD (hyperlipidemia) Current Visit: Yes Status: Acute Comment: - Not on statin therapy at this time, will defer to PCP to intiate statin therapy upon discharge (4) History of TIA (transient ischemic attack) Current Visit: Yes Status: Acute Comment: - Continue secondary prevention with ASA (5) Depression Current Visit: Yes Status: Acute Comment: - Continue Zoloft (6) GERD (gastroesophageal reflux disease) Current Visit: Yes Status: Acute Comment: - Continue PPI coverage (7) DVT prophylaxis Current Visit: Yes Status: Acute Comment: - SubQ Heparin, bridging to Warfarin per ortho team - Daily INR checks (8) Full code status Current Visit: Yes Status: Acute Status and Disposition: Inpatient. Anticipate discharge to home per ortho team once medically stable
[2018-03-12] MEDS ORDERED: Warfarin TAB(*) 4 MG PO ONE (17:00)
[2018-03-12] MEDS ORDERED: Aspirin EC TAB* 81 MG TAB.EC PO SCH (18:00)
[2018-03-12] MEDS: CMC:Nebivolol TAB (NF) 2.5 MG TAB PO SCH (18:30)
[2018-03-13] MEDS: oxyCODONE/Acetamin 5/325 MG* TAB PO PRN ×2 (03:29→07:29)
[2018-03-13] MEDS: Heparin VIAL(*) 5000 UNITS/ML VIAL (FIVE THOUSAND) SUBCUT SCH (03:30)
[2018-03-13 07:07] LABS: Hematocrit 38 % (42-52); Hemoglobin 13.2 g/dl (14.0-18.0); Mean Platelet Volume 8.3 um3 (7.4-10.4); Platelet Count 174 10^3/ul (150-450)
[2018-03-13 07:14] LABS: INR 3.54 (0.77-1.02)
[2018-03-13] MEDS: Omeprazole CAP* 20 MG PO SCH (07:29)
[2018-03-13] MEDS: Docusate CAP* 100 MG PO SCH (08:48)
[2018-03-13] MEDS: Sertraline* 50 MG TAB PO SCH (08:48)
[2018-03-13] MEDS: Vitamin THERAPEUTIC TAB PO SCH (08:48)
[2018-03-13] MEDS: oxyCODONE TAB* 5 MG TAB PO PRN (09:30)
--- NOTE | 2018-03-13 10:22 | PN ---
Progress Note - Progress Note Date of Service: 03/13/18 SOAP: Subjective: []Patient seen and examined at bedside. He feels well without chest pain, shortness of breath, dizziness, nausea or leg numbness. Knee pain is well controlled at rest and increases with activity. Nursing reports of irregular heartbeat Objective: []General: NAD Bilateral knee incisions are clean, dry and intact without erythema or discharge. DF/PF intact. Sensation intact distally. Dp2+, capillary refill less than two seconds distally. Calves supple and nontender without erythema, edema or palpable cords Assessment: []POD 2 bilateral total knee arthroplasty ] Plan: [Continue with current pain medication PT/OT stop heparin. 2 mg coumadin today Continue Incentive spirometry Vital Signs Temp 98.9 F 03/13/18 07:33 Pulse 85 03/13/18 07:33 Resp 18 03/13/18 09:30 BP 115/64 03/13/18 07:33 Pulse Ox 94 03/13/18 11:01 Intake & Output 03/12/18 03/13/18 03/13/18 18:59 06:59 18:59 Intake Total 1160 360 210 Output Total 100 675 Balance 1060 -315 210 Intake: IV Fluids 980 D5W 1/2 NS 980 IVPB 55 ABX - CEFAZOLIN 55 Oral 125 360 210 Output: Urine 100 675 Other: # Bowel Movements 0 0 Laboratory Last Values Hgb 13.2 g/dl (14.0-18.0) L 03/13/18 06:36 Hct 38 % (42-52) L 03/13/18 06:36 Plt Count 174 10^3/ul (150-450) 03/13/18 06:36 MPV 8.3 um3 (7.4-10.4) 03/13/18 06:36 INR (Anticoag Therapy) 3.54 (0.77-1.02) H 03/13/18 06:36 Sodium 135 mmol/L (135-145) 03/12/18 04:47 Potassium 4.7 mmol/L (3.5-5.0) 03/12/18 04:47 Chloride 103 mmol/L (101-111) 03/12/18 04:47 Carbon Dioxide 29 mmol/L (22-32) 03/12/18 04:47 Anion Gap 3 mmol/L (2-11) 03/12/18 04:47 BUN 14 mg/dL (6-24) 03/12/18 04:47 Creatinine 1.12 mg/dL (0.67-1.17) 03/12/18 04:47 Est GFR ( Amer) 80.1 (>60) 03/12/18 04:47 Est GFR (Non-Af Amer) 66.2 (>60) 03/12/18 04:47 BUN/Creatinine Ratio 12.5 (8-20) 03/12/18 04:47 Glucose 170 mg/dL (70-100) H 03/12/18 04:47 Calcium 8.5 mg/dL (8.6-10.3) L 03/12/18 04:47
[2018-03-13] MEDS ORDERED: Bisacodyl SUPP* 10 MG SUPP PR PRN (11:53)
[2018-03-13 12:11] VITALS: BP 124/50
--- NOTE | 2018-03-14 04:15 | DS ---
DISCHARGE SUMMARY: DATE OF ADMISSION: 03/11/18 DATE OF DISCHARGE: 03/13/18 PROVIDER: Dr. Derrek Diaz.* (DICTATED BY YVONNE GOMEZ) MANAGER ICU: YVONNE Garcia. OPERATIVE PROCEDURE: Right and left total knee arthroplasties. PRE-OP DIAGNOSIS: Osteoarthritis, bilateral knees. INDICATION: Mr. Garner is a 62-year-old male who has been having severe bilateral knee pain for several years. He failed conservative management and has elected to undergo bilateral total knee arthroplasties. HOSPITAL COURSE: The patient was admitted to [facility] on . He underwent bilateral total knee arthroplasties without complication. He recovered briefly and then was transferred to the short-stay surgical unit in stable condition. Postop day 1, he was well-appearing, in no acute distress. Bilateral dressings were clean, dry, and intact. Dorsiflexion and plantarflexion intact bilaterally. 2+ dorsalis pedis pulse bilaterally. Neurovascularly intact. Vital signs, 98.6 temperature, pulse 69, respiratory rate 16, blood pressure 124/69, pulse ox 97. He was also seen by hospitalist service during his stay. Past medical co-management including hypertension, history of TIA, GERD, depression. There are no changes to his therapy at this time. On postop day 2, he is well-appearing, in no acute distress. Bilateral knee incisions clean, dry, and intact. Had dressing changed, without any erythema or discharge. Dorsiflexion and plantarflexion intact. Sensation intact distally. DP pulse 2+. Capillary refill is less than 2 seconds distally. Calves supple and nontender without erythema, edema, or palpable cords. PHYSICAL EXAMINATION: Vital Signs: Temperature 98.9, pulse 85, respiratory rate 18, blood pressure 115/64, and pulse ox 94%. LABORATORY DATA: Hemoglobin 13.2, hematocrit 38. INR 3.54. Sodium 135, potassium 4.7. The patient was deemed to be medically and orthopedically stable for discharge to [facility] at [facility]. DISCHARGE MEDICATIONS: 1. Lexapro 5 mg p.o. q.p.m. 2. Diclofenac 50 mg p.o. q.p.m. 3. Sertraline 50 mg p.o. q.a.m. 4. Omeprazole 20 mg p.o. q.a.m. 5. Losartan 50 mg p.o. q.p.m. 6. Aspirin 81 mg p.o. q.p.m. 7. Lactase 3000 units p.r.n. 8. Acetaminophen 975 mg p.o. q. 8 hours p.r.n. 9. Docusate 100 mg p.o. b.i.d. p.r.n. 10. Percocet 5/325 one to two tablets every 4 to 6 hours as needed for pain, max daily dose of 10. 11. Morphine 2 mg tabs 1 to 3 tabs daily, dose depends on INR. DISCHARGE PLAN: The patient will be weightbearing as tolerated. He will require dressing changes to bilateral knees daily with antibiotic ointment, gauze, and Pedro bandage. Regular diet. Continue physical therapy and occupational therapy. Exercise as shown. Nurse will remove in 10 to 12 days and do wound checks. Nurse to draw blood for INR on Mondays and . Coumadin dosing 03/13/18 will be 2 mg. Please have PMRU dose Coumadin thereafter if there is an INR drop. Pain control with Percocet 5/325 one to two tabs every 4 to 6 hours as needed for pain, max daily dose of 10. Follow up with Dr. Diaz in 4 weeks or sooner. If there are any concerns, please call for an appointment. YVONNE GOMEZ [id number]/[facility] #: [id number] ALIA
[2018-03-14] MEDS ORDERED: Scopolamine PATCH Remove* 1 NOTE MISC PATCH OFF ONE (05:37)
== END 2018-03-13 11:25 | DRG 462 ==
LOC: AA 05:58 → SSU 14:14
PROVIDERS: ADMIT Orthopaedic Surgery; ATTEND Orthopaedic Surgery
PROC: 0SRC0JA Replacement of Right Knee Joint with Synthetic Substitute, Uncemented, Open Approach (ICD-10-PCS; 2018-03-11)
PROC: 0SRD0JA Replacement of Left Knee Joint with Synthetic Substitute, Uncemented, Open Approach (ICD-10-PCS; principal; 2018-03-11 07:30)
DX: M17.0 Bilateral primary osteoarthritis of knee (principal); I47.1 Supraventricular tachycardia; I10 Essential (primary) hypertension; E78.5 Hyperlipidemia, unspecified; K21.9 Gastro-esophageal reflux disease without esophagitis; F41.9 Anxiety disorder, unspecified; M19.90 Unspecified osteoarthritis, unspecified site; I49.1 Atrial premature depolarization; F32.9 Major depressive disorder, single episode, unspecified; Z82.69 Family history of other diseases of the musculoskeletal system and connective tissue; Z86.73 Personal history of transient ischemic attack (TIA), and cerebral infarction without residual deficits; Z79.82 Long term (current) use of aspirin; Z79.899 Other long term (current) drug therapy; Z88.6 Allergy status to analgesic agent; Z88.1 Allergy status to other antibiotic agents; Z88.5 Allergy status to narcotic agent; Z88.8 Allergy status to other drugs, medicaments and biological substances; Z87.891 Personal history of nicotine dependence
CPT/HCPCS: 36415; 80048; 85014; 85018; 85049; 85610; 90686; 93005; A9270-GY; J0360; J0690; J1644; J2250; J2270; J2405; J2704; J3010; J8540

== ENCOUNTER 2018-03-13 10:09 | Inpatient (IN) | payer OTHER ==
[2018-03-13] MEDS: oxyCODONE/Acetamin 5/325 MG* TAB PO PRN (14:40)
[2018-03-13] MEDS: Aspirin EC TAB* 81 MG TAB.EC PO SCH (17:31)
[2018-03-13] MEDS: CMC:Nebivolol TAB (NF) 2.5 MG TAB PO SCH (17:31)
[2018-03-13] MEDS: Senna TAB PO PRN (20:26)
[2018-03-13] MEDS: Docusate CAP* 100 MG PO SCH (20:26)
[2018-03-13] MEDS: Magnesium Hydroxide LIQ* 30 ML UDC PO PRN (20:28)
--- NOTE | 2018-03-13 23:42 | HP ---
ADMISSION HISTORY AND PHYSICAL: DATE OF ADMISSION: 03/13/18 REASON FOR ADMISSION: Bilateral total knee replacement. HISTORY OF PRESENT ILLNESS: Americo Garner is a 62-year-old male. He has a medical history significant for TIA, which occurred in January of 2013. He takes a baby aspirin daily. He also has a history of gastroesophageal reflux disease. The patient had significant pain in his knees. His right knee was worse than his left. However, as time went on and he began to favor the left knee. The left knee became bad too. As a result, he had significant bilateral pain. He saw Dr. Diaz. He had tried and failed conservative treatment including injections. He had x-rays of his bilateral knees showing medial joint space narrowing and spurring present. It was felt that he had significant arthritis and would benefit from a total knee replacement. He was admitted to [facility] on 03/11/18 and underwent a bilateral total replacement that day. He was started on Coumadin for DVT prophylaxis. Today, his INR was 3.54. Otherwise, he was fairly stable from a medical point of view. His Cozaar was held, but he resumed his beta-ivanna Bystolic. He was felt to have Physical Therapy and Occupational Therapy needs. He is now being admitted for inpatient rehab so that he might return to independent living. PAST MEDICAL HISTORY: Significant for the aforementioned TIA in 2012. He has a history of gastroesophageal reflux disease and a history of anxiety. He has hypertension, hyperlipidemia also. CURRENT MEDICATIONS: Include: 1. Baby aspirin. 2. He is on Bystolic. 3. Prilosec. 4. Percocet for pain control. 5. Zoloft. 6. As mentioned, he is normally on Cozaar, but this is being held. ALLERGIES: To CODEINE, IBUPROFEN, TRAMADOL, AMOXICILLIN, ZITHROMAX, AND LACTOSE. SOCIAL HISTORY: He is a nonsmoker, nondrinker. 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 He lives with his in a 2-story house, but he can stay on 1 level. REVIEW OF SYSTEMS: The patient reports no current shortness of breath or chest pain. PHYSICAL EXAMINATION VITAL SIGNS: The patient's temperature is 98.4, blood pressure is 119/61, pulse is 94, respirations 16. HEENT: His extraocular movements were intact. Tongue is midline. NECK: Supple. LUNGS: Sound clear to auscultation bilaterally. HEART: Sounds are regular. S1 and S2 are audible. ABDOMEN: Soft, nontender. EXTREMITIES: He has wounds on both legs that appear to be clean and dry. Peripheral pulses were intact. NEUROLOGIC: Sensation was intact. Deep tendon reflexes were 2+ and symmetric in the biceps, triceps, brachioradialis, patellar tendons, and ankle jerks. Muscle strength 5/5 in both upper and lower extremities. Gait: He ambulates without assistive devices. No abnormalities are noted. ASSESSMENT: Bilateral total knee replacement. PLAN: Integrate him into a comprehensive and therapeutic rehab program with the following goals: 1. Physical Therapy will see the patient. They are going to work on functional transfer training, ambulation training with a walker. 2. Occupational Therapy will see the patient, work on his activities of daily living including toileting and toilet transfers. 3. Coumadin for DVT prophylaxis. We are going to hold his Coumadin tonight because of his INR being 3.54. 4. Adequate analgesia. 5. His bowels will be regulated. 6. rehabilitation services director will be closely involved to make sure that any services and equipment the patient requires are in place prior to discharge. 7. Family training as appropriate. 8. Home with appropriate services. ESTIMATED LENGTH OF STAY: 7 to 10 days. [id number]/[facility] #: [id number] [facility]
[2018-03-14] MEDS: Omeprazole CAP* 20 MG PO SCH (05:54)
[2018-03-14] MEDS: Acetaminophen TAB* 325 MG PO PRN (05:54)
[2018-03-14 06:35] LABS: INR 4.31 (0.77-1.02)
[2018-03-14] MEDS: Sertraline* 50 MG TAB PO SCH (08:54)
[2018-03-14] MEDS: oxyCODONE/Acetamin 5/325 MG* TAB PO PRN ×3 (08:55→19:55)
[2018-03-14] MEDS: Docusate CAP* 100 MG PO SCH ×2 (08:55→19:54)
[2018-03-14] MEDS: Aspirin EC TAB* 81 MG TAB.EC PO SCH (17:26)
[2018-03-14] MEDS: CMC:Nebivolol TAB (NF) 2.5 MG TAB PO SCH (17:26)
--- NOTE | 2018-03-14 19:05 | PN ---
Progress Note Date of Service: 03/14/18 Note: JOANN NIXON was visited. Therapy notes read and reviewed. His INR has continued to rise and was 4.31 today. Will hold on Vitamin K for now and check INR in am. He has been moving fairly well though limited in distance. Current Medications: Active Medications Generic Name Dose Route Start Last Admin Trade Name Freq PRN Reason Stop Dose Admin Acetaminophen 650 mg 03/13/18 12:27 03/14/18 05:54 Tylenol Tab* PO 650 mg Q6H PRN Administration FEVER/PAIN Aspirin 81 mg 03/13/18 18:00 03/14/18 17:26 Aspirin Ec Tab* PO 81 mg 1800 JANICE Administration Docusate Sodium 100 mg 03/13/18 21:00 03/14/18 08:55 Colace Cap* PO 100 mg BID JANICE Administration Magnesium Hydroxide 30 ml 03/13/18 12:27 03/13/18 20:28 Milk Of Magnesia Liq* PO 30 ml Q6H PRN Administration CONSTIPATION Nebivolol 5 mg 03/13/18 18:00 03/14/18 17:26 Bystolic Tab (Nf) PO 5 mg 1800 JANICE Administration Omeprazole 20 mg 03/14/18 06:00 03/14/18 05:54 Prilosec Cap* PO 20 mg 0600 JANICE Administration Oxycodone/Acetaminophen 1 tab 03/13/18 12:31 03/14/18 13:11 Percocet 5/325 Tab* PO 1 tab Q4H PRN Administration PAIN - MODERATE TO SEVERE Oxycodone/Acetaminophen 2 tab 03/13/18 12:34 03/13/18 14:40 Percocet 5/325 Tab* PO 2 tab Q4H PRN Administration PAIN - SEVERE Senna 2 tab 03/13/18 12:27 03/13/18 20:26 Senokot Tab* PO 2 tab BEDTIME PRN Administration CONSTIPATION Sertraline HCl 50 mg 03/14/18 09:00 03/14/18 08:54 Zoloft* PO 50 mg DAILY JANICE Administration Vital Signs: Vital Signs Temp Pulse Resp BP Pulse Ox 98.1 F 85 18 127/70 97 03/14/18 16:34 03/14/18 16:34 03/14/18 17:38 03/14/18 16:34 03/14/18 17:41 Lab Results: Laboratory Results - last 24 hr 03/14/18 06:19 INR (Anticoag Therapy) 4.31 H Exam: GENERAL: Alert, oriented, in no distress LUNGS: Clear bilaterally HEART: Reg rhythm ABDOMEN: Soft, + BS EXTREMITIES: Knee wounds c/d/i NEUROLOGIC: oriented. Sensation intact. Muscle strength about 4/5 in LEs able to dorsiflex bilaterally Assessment/Plan: 1. Bilateral TKR: WBAT. PT/OT 2. History of TIA in 2013: ASA 3. Depression: Zoloft 4. DVT Prophylaxis: Supratherapeutic INR so will hold Coumadin 5. Advanced Directives: Full Code 03/14/18 19:03
[2018-03-14] MEDS: Senna TAB PO PRN (19:55)
[2018-03-15] MEDS: Omeprazole CAP* 20 MG PO SCH (05:46)
[2018-03-15 08:36] LABS: ABS Basophils 0 10^3/ul (0-0.2); ABS Eosinophils 0.1 10^3/ul (0-0.6); ABS Lymphocytes 0.6 10^3/ul (1.0-4.8); ABS Monocytes 0.7 10^3/ul (0-0.8); ABS Neutrophils 6.6 10^3/ul (1.5-7.7); ABS Nucleated RBC 0 10^3/ul; Eosinophil % 1.4 % (0-6); Hematocrit 36 % (42-52); Hemoglobin 12.4 g/dl (14.0-18.0); Lymphocyte % 7.1 % (25-47); Mean Corpuscular HGB Conc 34 g/dl (31-36); Mean Corpuscular Hemoglobin 30 pg (27-31); Mean Corpuscular Volume 87 fL (80-94); Mean Platelet Volume 7.4 um3 (7.4-10.4); Nucleated Red Blood Cells % 0.1; Platelet Count 220 10^3/ul (150-450); Red Blood Count 4.15 10^6/ul (4.00-5.40); Red Cell Distribution Width 14 % (10.5-15)
[2018-03-15 08:41] LABS: INR 2.33 (0.77-1.02)
[2018-03-15 08:55] LABS: EGFR Non-African American 81.1 (>60)
[2018-03-15] MEDS: Sertraline* 50 MG TAB PO SCH (10:09)
[2018-03-15] MEDS: Docusate CAP* 100 MG PO SCH ×2 (10:10→20:23)
[2018-03-15] MEDS: oxyCODONE/Acetamin 5/325 MG* TAB PO PRN ×3 (10:10→20:23)
--- NOTE | 2018-03-15 12:41 | PMRUTEAM ---
PMRU: Team Meeting Current Status: Nursing: Current Status Skin Deviations [Buttocks] Other Skin Deviations [Bilateral Incision Knee] Skin Deviation Description [ healed Buttocks] Skin Deviation Description [ s/p bilateral total knee replacements Bilateral Knee] Physical Therapy: Current Status Bed Mobility Assistance Supervision,Mod Assist Transfer Moblility Assistance Supervision Transfer/Bed Mobility Rolling Walker Recommended Devices Transfer Mobility Comment OOB S x 1. mod x 1 into bed Ambulation Assistance Supervision Ambulation Assistive Devices Rolling Walker Number of Feet Patient 50' Ambulated Ambulation Comment slow and steady step to type gait. Stairs Assistance Not Tested Stairs Recommended Devices Two Rails Number of Stairs 3 Curb Not Tested Occupational Therapy: Current Status Upper Body Dressing Supervision Lower Body Dressing Contact Guard Assist Bathing Min Assist Toileting Min Assist,2 Person Assist Toilet Transfer Min Assist,2 Person Assist Shower Transfer Contact Guard Assist,Mod Assist Eating Ind with Adaptive Equip Rec Therapy: Current Status Summary of Assessment and Pt. was open to conversation - pleasant and Clinical Impression cooperative. Pt. identified with interests and involvement prior to admission. Pt. was with his and she contributed to our conversation as well. Pt. was open to continued leisure visits. Treatment Goals Pt. will engage in leisure activities while on the unit. Treatment Plan Provide RT services and encourage involvement. Social Work: Current Status Discharge Plan return home with home care svs and family support Potential for Family Training pt's is involved and supportive Anticipated Discharge Home Destination Discharge With home care svs and family support Goals: Physical Therapy: Initial Goals Bed Mobility Assistance Independent Transfer Mobility Assistance Independent Transfer/Bed Mobility Rolling Walker Recommended Devices Ambulation Independent Ambulation Recommended Devices Rolling Walker Ambulation Distance 150 Stairs Assistance Contact Guard Assist Stair Recommended Devices One Rail Number of Stairs 6 Home Exercise Program Independent Assistance Physical Therapy: Updated Goals Bed Mobility Assistance Independent Transfer Mobility Assistance Independent Transfer/Bed Mobility Rolling Walker Recommended Devices Ambulation Assistance Independent Ambulation Assistive Devices Rolling Walker Ambulation Distance (ft) 150 Stairs Assistance Independent Stairs Recommended Devices One Rail,Two Rails Number of Stairs 6 Home Exercise Program Independent Assistance Occupational Therapy: Initial Goals Goals to be Completed in (Days 7-10 ) Upper Body Bathing Routine Independent Lower Body Bathing Routine Modified Independent with Upper Body Dressing Routine Independent Lower Body Dressing Routine Modified Independent with Toilet Hygeine and Clothing Modified Independent with Management Routine Toilet Transfer Routine Modified Independent with Step-In Shower Transfer Modified Independent with Routine Functional Transfers for ADL Modified Independent with Grooming Routine Independent Feeding Routine Modified Independent with Social Work: Goals Discharge Plan return home with home care svs and family support Potential for Family Training pt's is involved and supportive Anticipated Discharge Home Destination Discharge With home care svs and family support Care Plan: Care Plan ADL's - Improve/Maintain Start: 03/13/18 14:56 Freq: DAILY Status: Active Target: Protocol: Activity Type Activity Date Activity User E-Sign Co-Sign Detail Recorded Client Recorded Date Recorded By Document 03/14/18 15:40 [id number] [id number] 03/14/18 15:40 [id number] 03/14/18 15:40 PMRU Outcome: ADL's/ADL Transfers Orders/Interventions Occupational Therapy Evaluation & Treatment Communication Tool in Patient Room Device Yes Address Deficits Secondary To: Elias TKA Patient to receive OT 5x/wk for 60-120 Therex min/day Self Care Management Group Therapy UE/LE ADL's with Assist Yes: Mo ADL Transfers with Assist Yes: Mo Toileting: Transfers,Clothing Management Yes: Mo ,Hygeine w/Assist Light Kitchen/Laundry w/Assist No Progression Toward Outcome/Goals Progressing Outcome/Goals Met Pt participated well in treatment session, reported increased pain after LEs with knees in flexed position on commode during commode use and completion of bathing/ dressing, however reported improvement in pain once seated in recliner chair with LEs elevated. Foot stool placed in room for positioning to increase comfort on commode as well as to increase options for changing positions of LEs to decrease stiffness, pt and verbalized understanding, nursing notified as well. DVT Prophylaxis- Improve/Maintain Start: 03/13/18 14:24 Freq: QSHIFT Status: Active Target: Protocol: Activity Type Activity Date Activity User E-Sign Co-Sign Detail Recorded Client Recorded Date Recorded By Document 03/15/18 00:48 [id number] 03/15/18 00:48 [id number] 03/15/18 00:48 PMRU Outcome: DVT Prophylaxis Outcome/Goals Remains Free of DVT Complies with DVT Prophylaxis /Treatment Demonstrates Knowledge of DVT Prevention/ Treatment TEDS Stockings on Every AM, Off at HS Progression Toward Outcome/Goals Progressing Discharge Planning - Improve/Maintain Start: 03/13/18 14:24 Freq: DAILY Status: Active Target: Protocol: Activity Type Activity Date Activity User E-Sign Co-Sign Detail Recorded Client Recorded Date Recorded By Document 03/15/18 00:48 [id number] 03/15/18 00:48 [id number] 03/15/18 00:48 PMRU Outcome: Discharge Planning Update Patient Family No Outcome/Goals Demonstrates Understanding of Discharge Plan Progression Toward Outcome/Goals Progressing Education-Improve/Maintain Start: 03/13/18 14:24 Freq: QSHIFT Status: Active Target: Protocol: Activity Type Activity Date Activity User E-Sign Co-Sign Detail Recorded Client Recorded Date Recorded By Document 03/15/18 00:48 [id number] [email or web address] 03/15/18 00:48 [id number] 03/15/18 00:48 PMRU Outcome: Education Outcome/Goals Encourage Questions Progression Toward Outcome/Goals Progressing /GI-Improve/Maintain Start: 03/13/18 14:24 Freq: QSHIFT Status: Active Target: Protocol: Activity Type Activity Date Activity User E-Sign Co-Sign Detail Recorded Client Recorded Date Recorded By Document 03/15/18 00:48 [id number] 03/15/18 00:48 [id number] 03/15/18 00:48 PMRU Outcome: Genitourinary/ Gastrointestinal Genitourinary- Outcome/Goals Maintain/ Achieve Urinary Continence Remain Free of Hospital- Acquired UTI Gastrointestinal-Outcome/Goals Maintain/ Achieve Bowel Regularity in Accordance with Pt's Baseline Prevent Constipation Laxatives as Ordered Progression Toward Outcome/Goals - Progressing Progression Toward Outcome/Goals - GI Progressing Medication Administration Start: 03/13/18 14:24 Freq: QSHIFT Status: Active Target: Protocol: Activity Type Activity Date Activity User E-Sign Co-Sign Detail Recorded Client Recorded Date Recorded By Document 03/15/18 00:48 [id number] 03/15/18 00:48 [id number] 03/15/18 00:48 PMRU Outcome: Medication Administration Assess Patient Knowledge/Teach Med Yes Education for all Meds Outcome/Goals Demonstrates Understanding Progression Towards Outcome/Goals Progressing Is Patient Going Home on Lovenox? No Mobility- Improve/Maintain Start: 03/13/18 16:33 Freq: DAILY Status: Active Target: Protocol: Activity Type Activity Date Activity User E-Sign Co-Sign Detail Recorded Client Recorded Date Recorded By Document 03/13/18 16:33 [id number] 03/13/18 16:34 [id number] 03/13/18 16:33 PMRU Outcome: Mobility Physical Therapy Evaluation and Yes Treatment Activity OOB with Assistance Yes: Ax2 WBAT Yes: WBAT Device Yes: FWW Assistance Yes: ModAx2 Patient to be seen 5x/wk for 60-120 min/ Therex day for: Mobility Training Gait Training W/C Mobility Balance Outcome/Goals Maintain/ Achieve Baseline Mobility Status Improve Mobility Status Demonstrates Proper Use of Assistive Devices Free from Complications of Immobility Bed Mobility Yes: Ind Transfers Yes: Mod I with FWW Gait x ft Yes: Mod I with FWW x150ft Up/Down Stairs Yes: CGA x6 steps with 1 rail With HEP Yes Pain/Comfort- Improve/Maintain Start: 03/13/18 14:24 Freq: QSHIFT Status: Active Target: Protocol: Activity Type Activity Date Activity User E-Sign Co-Sign Detail Recorded Client Recorded Date Recorded By Document 03/15/18 00:48 [id number] 03/15/18 00:48 [id number] 03/15/18 00:48 PMRU Outcome: Pain/Comfort Outcome/Goals Demonstrates Knowledge and Use of Available Comfort Measures Achieves Acceptable Comfort/Pain Level as Determined by Patient/Condit Maintain Comfort Level Allowing Patient to Fully Participate in Rehab Progression Toward Outcome/Goals Progressing Outcome/Goals Met Comment pt denied pain Safety- Improve/Maintain Start: 03/13/18 14:24 Freq: QSHIFT Status: Active Target: Protocol: Activity Type Activity Date Activity User E-Sign Co-Sign Detail Recorded Client Recorded Date Recorded By Document 03/15/18 00:48 [id number] [id number] 03/15/18 00:48 [id number] 03/15/18 00:48 PMRU Outcome: Safety Outcome/Goals Remain Free of Injury or Harm Prevent Falls/ Injury Progression Toward Outcome/Goals Not Progressing Outcome/Goals Met Comment BA armed Skin- Improve/Maintain Start: 03/13/18 14:24 Freq: QSHIFT Status: Active Target: Protocol: Activity Type Activity Date Activity User E-Sign Co-Sign Detail Recorded Client Recorded Date Recorded By Document 03/15/18 00:48 [id number] 03/15/18 00:48 [id number] 03/15/18 00:48 PMRU Outcome: Skin Skin Risk Level Medium Skin Orders Dressing Change Outcome/Goals Maintain/ Improve Skin Intergrity Free from Decubitus Surgical Incisions Healing Progression Toward Outcome/Goals Progressing Medicine Note: Length of Stay: 10 days Anticipated Discharge Destination: Home Tentative Discharge Date: 03/26/18 Discharged to: Home
--- NOTE | 2018-03-15 15:51 | PN ---
Progress Note Date of Service: 03/15/18 Note: JOANN NIXON was visited. Therapy notes read and reviewed. Patient was discussed in interdisciplinary plan of care rounds. He has been a little shaky walking and has trouble getting into bed. INR now therapeutic. Will resume Coumadin, check INR in am Current Medications: Active Medications Generic Name Dose Route Start Last Admin Trade Name Freq PRN Reason Stop Dose Admin Acetaminophen 650 mg 03/13/18 12:27 03/14/18 05:54 Tylenol Tab* PO 650 mg Q6H PRN Administration FEVER/PAIN Aspirin 81 mg 03/13/18 18:00 03/14/18 17:26 Aspirin Ec Tab* PO 81 mg 1800 JANICE Administration Docusate Sodium 100 mg 03/13/18 21:00 03/15/18 10:10 Colace Cap* PO 100 mg BID JANICE Administration Magnesium Hydroxide 30 ml 03/13/18 12:27 03/13/18 20:28 Milk Of Magnesia Liq* PO 30 ml Q6H PRN Administration CONSTIPATION Nebivolol 5 mg 03/13/18 18:00 03/14/18 17:26 Bystolic Tab (Nf) PO 5 mg 1800 JANICE Administration Omeprazole 20 mg 03/14/18 06:00 03/15/18 05:46 Prilosec Cap* PO 20 mg 0600 JANICE Administration Oxycodone/Acetaminophen 1 tab 03/13/18 12:31 03/15/18 13:23 Percocet 5/325 Tab* PO 1 tab Q4H PRN Administration PAIN - MODERATE TO SEVERE Oxycodone/Acetaminophen 2 tab 03/13/18 12:34 03/13/18 14:40 Percocet 5/325 Tab* PO 2 tab Q4H PRN Administration PAIN - SEVERE Senna 2 tab 03/13/18 12:27 03/14/18 19:55 Senokot Tab* PO 2 tab BEDTIME PRN Administration CONSTIPATION Sertraline HCl 50 mg 03/14/18 09:00 03/15/18 10:09 Zoloft* PO 50 mg DAILY JANICE Administration Warfarin Sodium 4 mg 03/15/18 17:00 Coumadin Tab(*) PO DAILY@1700 [facility] Protocol Vital Signs: Vital Signs Temp Pulse Resp BP Pulse Ox 98.7 F 87 16 116/64 96 03/15/18 15:06 03/15/18 15:06 03/15/18 15:10 03/15/18 15:06 03/15/18 15:06 Lab Results: Laboratory Results - last 24 hr 03/15/18 03/15/18 03/15/18 08:28 08:28 08:29 WBC 8.0 RBC 4.15 Hgb 12.4 L Hct 36 L MCV 87 MCH 30 MCHC 34 RDW 14 Plt Count 220 MPV 7.4 Neut % (Auto) 82.8 Lymph % (Auto) 7.1 L [place] % (Auto) 8.4 H Eos % (Auto) 1.4 Baso % (Auto) 0.3 Absolute Neuts (auto) 6.6 Absolute Lymphs (auto) 0.6 L Absolute Monos (auto) 0.7 Absolute Eos (auto) 0.1 Absolute Basos (auto) 0 Absolute Nucleated RBC 0 Nucleated RBC % 0.1 INR (Anticoag Therapy) 2.33 H Sodium 136 Potassium 3.9 Chloride 101 Carbon Dioxide 30 Anion Gap 5 BUN 23 Creatinine 0.94 Est GFR ( Amer) 98.1 Est GFR (Non-Af Amer) 81.1 BUN/Creatinine Ratio 24.5 H Glucose 112 H Calcium 8.8 Total Bilirubin 0.90 AST 16 ALT 11 Alkaline Phosphatase 60 Total Protein 6.2 L Albumin 3.3 Globulin 2.9 Albumin/Globulin Ratio 1.1 Exam: GENERAL: Alert, oriented, in no distress LUNGS: Clear bilaterally HEART: Reg rhythm ABDOMEN: Soft, + BS EXTREMITIES: Knee wounds c/d/i NEUROLOGIC: oriented. Sensation intact. Muscle strength about 4/5 in LEs able to dorsiflex bilaterally Assessment/Plan: 1. Bilateral TKR: WBAT. PT/OT 2. History of TIA in 2012: ASA/Bystolic. Will likely resume Cozaar 3. Depression: Zoloft 4. DVT Prophylaxis: INR therapeutic, will resume Coumadin 5. Advanced Directives: Full Code 03/15/18 15:51
[2018-03-15] MEDS ORDERED: Warfarin TAB(*) 4 MG PO SCH (17:00)
[2018-03-15] MEDS: Aspirin EC TAB* 81 MG TAB.EC PO SCH (17:52)
[2018-03-15] MEDS: CMC:Nebivolol TAB (NF) 2.5 MG TAB PO SCH (17:53)
[2018-03-16] MEDS: oxyCODONE/Acetamin 5/325 MG* TAB PO PRN ×4 (03:00→19:50)
[2018-03-16] MEDS: Omeprazole CAP* 20 MG PO SCH (06:32)
[2018-03-16 06:36] LABS: INR 2.43 (0.77-1.02)
[2018-03-16] MEDS: Docusate CAP* 100 MG PO SCH ×2 (08:04→19:49)
[2018-03-16] MEDS: Sertraline* 50 MG TAB PO SCH (08:04)
--- NOTE | 2018-03-16 08:16 | PN ---
Progress Note Date of Service: 03/16/18 Note: JOANN NIXON was visited. Therapy notes read and reviewed. He feels like he is doing well. No complaints of any SOB. Moving bowels. Pain control adequate. INR up a little, will lower Coumadin to 3 mg. Current Medications: Active Medications Generic Name Dose Route Start Last Admin Trade Name Freq PRN Reason Stop Dose Admin Acetaminophen 650 mg 03/13/18 12:27 03/14/18 05:54 Tylenol Tab* PO 650 mg Q6H PRN Administration FEVER/PAIN Aspirin 81 mg 03/13/18 18:00 03/15/18 17:52 Aspirin Ec Tab* PO 81 mg 1800 JANICE Administration Docusate Sodium 100 mg 03/13/18 21:00 03/16/18 08:04 Colace Cap* PO 100 mg BID JANICE Administration Magnesium Hydroxide 30 ml 03/13/18 12:27 03/13/18 20:28 Milk Of Magnesia Liq* PO 30 ml Q6H PRN Administration CONSTIPATION Nebivolol 5 mg 03/13/18 18:00 03/15/18 17:53 Bystolic Tab (Nf) PO 5 mg 1800 JANICE Administration Omeprazole 20 mg 03/14/18 06:00 03/16/18 06:32 Prilosec Cap* PO 20 mg 0600 JANICE Administration Oxycodone/Acetaminophen 1 tab 03/13/18 12:31 03/16/18 08:03 Percocet 5/325 Tab* PO 1 tab Q4H PRN Administration PAIN - MODERATE TO SEVERE Oxycodone/Acetaminophen 2 tab 03/13/18 12:34 03/13/18 14:40 Percocet 5/325 Tab* PO 2 tab Q4H PRN Administration PAIN - SEVERE Senna 2 tab 03/13/18 12:27 03/14/18 19:55 Senokot Tab* PO 2 tab BEDTIME PRN Administration CONSTIPATION Sertraline HCl 50 mg 03/14/18 09:00 03/16/18 08:04 Zoloft* PO 50 mg DAILY JANICE Administration Warfarin Sodium 3 mg 03/16/18 17:00 Coumadin Tab(*) PO DAILY@1700 [facility] Protocol Vital Signs: Vital Signs Temp Pulse Resp BP Pulse Ox 98.2 F 77 18 124/67 98 03/16/18 06:28 03/16/18 06:28 03/16/18 08:03 03/16/18 06:28 03/16/18 08:00 Lab Results: Laboratory Results - last 24 hr 03/15/18 03/15/18 03/15/18 08:28 08:28 08:29 WBC 8.0 RBC 4.15 Hgb 12.4 L Hct 36 L MCV 87 MCH 30 MCHC 34 RDW 14 Plt Count 220 MPV 7.4 Neut % (Auto) 82.8 Lymph % (Auto) 7.1 L [place] % (Auto) 8.4 H Eos % (Auto) 1.4 Baso % (Auto) 0.3 Absolute Neuts (auto) 6.6 Absolute Lymphs (auto) 0.6 L Absolute Monos (auto) 0.7 Absolute Eos (auto) 0.1 Absolute Basos (auto) 0 Absolute Nucleated RBC 0 Nucleated RBC % 0.1 INR (Anticoag Therapy) 2.33 H Sodium 136 Potassium 3.9 Chloride 101 Carbon Dioxide 30 Anion Gap 5 BUN 23 Creatinine 0.94 Est GFR ( Amer) 98.1 Est GFR (Non-Af Amer) 81.1 BUN/Creatinine Ratio 24.5 H Glucose 112 H Calcium 8.8 Total Bilirubin 0.90 AST 16 ALT 11 Alkaline Phosphatase 60 Total Protein 6.2 L Albumin 3.3 Globulin 2.9 Albumin/Globulin Ratio 1.1 03/16/18 06:10 WBC RBC Hgb Hct MCV MCH MCHC RDW Plt Count MPV Neut % (Auto) Lymph % (Auto) [place] % (Auto) Eos % (Auto) Baso % (Auto) Absolute Neuts (auto) Absolute Lymphs (auto) Absolute Monos (auto) Absolute Eos (auto) Absolute Basos (auto) Absolute Nucleated RBC Nucleated RBC % INR (Anticoag Therapy) 2.43 H Sodium Potassium Chloride Carbon Dioxide Anion Gap BUN Creatinine Est GFR ( Amer) Est GFR (Non-Af Amer) BUN/Creatinine Ratio Glucose Calcium Total Bilirubin AST ALT Alkaline Phosphatase Total Protein Albumin Globulin Albumin/Globulin Ratio Exam: GENERAL: Alert, oriented, in no distress LUNGS: Clear bilaterally HEART: Reg rhythm ABDOMEN: Soft, + BS EXTREMITIES: Knee wounds c/d/i NEUROLOGIC: oriented. Sensation intact. Muscle strength about 4/5 in LEs able to dorsiflex bilaterally Assessment/Plan: 1. Bilateral TKR: WBAT. PT/OT 2. History of TIA in 2013: ASA/Bystolic. Will likely resume Cozaar 3. Depression: Zoloft 4. DVT Prophylaxis: INR therapeutic, adjusted Coumadin 5. Advanced Directives: Full Code 03/16/18 08:16
[2018-03-16] MEDS: Acetaminophen TAB* 325 MG PO PRN (10:58)
[2018-03-16] MEDS: Aspirin EC TAB* 81 MG TAB.EC PO SCH (17:42)
[2018-03-16] MEDS: CMC:Nebivolol TAB (NF) 2.5 MG TAB PO SCH (17:43)
[2018-03-16] MEDS: Warfarin TAB(*) 4 MG PO SCH (17:45)
[2018-03-16] MEDS: Senna TAB PO PRN (19:49)
[2018-03-17] MEDS: oxyCODONE/Acetamin 5/325 MG* TAB PO PRN ×5 (04:04→21:20)
[2018-03-17] MEDS: Omeprazole CAP* 20 MG PO SCH (05:34)
[2018-03-17] MEDS: Sertraline* 50 MG TAB PO SCH (08:24)
[2018-03-17] MEDS: Docusate CAP* 100 MG PO SCH ×2 (08:24→21:19)
[2018-03-17] MEDS: Aspirin EC TAB* 81 MG TAB.EC PO SCH (17:17)
[2018-03-17] MEDS: Warfarin TAB(*) 4 MG PO SCH (17:18)
--- NOTE | 2018-03-17 17:28 | PN ---
Progress Note Date of Service: 03/17/18 Note: JOANN NIXON was visited. Therapy notes read and reviewed. He notes he hasn 't had a bowel movement today or yesterday. I asked that he get MOM tonight. Otherwise doing ok. Current Medications: Active Medications Generic Name Dose Route Start Last Admin Trade Name Freq PRN Reason Stop Dose Admin Acetaminophen 650 mg 03/13/18 12:27 03/16/18 10:58 Tylenol Tab* PO 650 mg Q6H PRN Administration FEVER/PAIN Aspirin 81 mg 03/13/18 18:00 03/17/18 17:17 Aspirin Ec Tab* PO 81 mg 1800 JANICE Administration Docusate Sodium 100 mg 03/13/18 21:00 03/17/18 08:24 Colace Cap* PO 100 mg BID JANICE Administration Magnesium Hydroxide 30 ml 03/13/18 12:27 03/13/18 20:28 Milk Of Magnesia Liq* PO 30 ml Q6H PRN Administration CONSTIPATION Nebivolol 5 mg 03/13/18 18:00 03/16/18 17:43 Bystolic Tab (Nf) PO 5 mg 1800 JANICE Administration Omeprazole 20 mg 03/14/18 06:00 03/17/18 05:34 Prilosec Cap* PO 20 mg 0600 JANICE Administration Oxycodone/Acetaminophen 1 tab 03/13/18 12:31 03/17/18 17:17 Percocet 5/325 Tab* PO 1 tab Q4H PRN Administration PAIN - MODERATE TO SEVERE Oxycodone/Acetaminophen 2 tab 03/13/18 12:34 03/13/18 14:40 Percocet 5/325 Tab* PO 2 tab Q4H PRN Administration PAIN - SEVERE Senna 2 tab 03/13/18 12:27 03/16/18 19:49 Senokot Tab* PO 2 tab BEDTIME PRN Administration CONSTIPATION Sertraline HCl 50 mg 03/14/18 09:00 03/17/18 08:24 Zoloft* PO 50 mg DAILY JANICE Administration Warfarin Sodium 3 mg 03/16/18 17:00 03/17/18 17:18 Coumadin Tab(*) PO 3 mg DAILY@1700 JANICE Administration Protocol Vital Signs: Vital Signs Temp Pulse Resp BP Pulse Ox 98.3 F 78 18 129/72 99 03/17/18 15:26 03/17/18 15:26 03/17/18 17:17 03/17/18 15:26 03/17/18 15:26 Exam: GENERAL: Alert, oriented, in no distress LUNGS: Clear bilaterally HEART: Reg rhythm ABDOMEN: Soft, + BS EXTREMITIES: Knee wounds c/d/i NEUROLOGIC: oriented. Sensation intact. Muscle strength about 4/5 in LEs able to dorsiflex bilaterally Assessment/Plan: 1. Bilateral TKR: WBAT. PT/OT 2. History of TIA in 2012: ASA/Bystolic. Will likely resume Cozaar 3. Depression: Zoloft 4. DVT Prophylaxis: INR therapeutic, adjusted Coumadin 5. Advanced Directives: Full Code 03/17/18 17:28
[2018-03-17] MEDS: CMC:Nebivolol TAB (NF) 2.5 MG TAB PO SCH (18:24)
[2018-03-17] MEDS: Magnesium Hydroxide LIQ* 30 ML UDC PO PRN (21:19)
[2018-03-18] MEDS: Omeprazole CAP* 20 MG PO SCH (04:29)
[2018-03-18] MEDS: oxyCODONE/Acetamin 5/325 MG* TAB PO PRN ×5 (04:29→20:05)
[2018-03-18 06:01] LABS: INR 3.18 (0.77-1.02)
[2018-03-18] MEDS: Sertraline* 50 MG TAB PO SCH (08:07)
[2018-03-18] MEDS: Docusate CAP* 100 MG PO SCH ×2 (08:07→20:04)
[2018-03-18] MEDS: Warfarin TAB(*) 2 MG PO SCH (16:18)
[2018-03-18] MEDS: Aspirin EC TAB* 81 MG TAB.EC PO SCH (17:16)
[2018-03-18] MEDS: CMC:Nebivolol TAB (NF) 2.5 MG TAB PO SCH (17:16)
--- NOTE | 2018-03-18 17:19 | PN ---
Progress Note Date of Service: 03/18/18 Note: JOANN NIXON was visited. Therapy notes read and reviewed. He was able to do the 1 inch steps today in PT. He is having a hard time with constipation. Current Medications: Active Medications Generic Name Dose Route Start Last Admin Trade Name Freq PRN Reason Stop Dose Admin Acetaminophen 650 mg 03/13/18 12:27 03/16/18 10:58 Tylenol Tab* PO 650 mg Q6H PRN Administration FEVER/PAIN Aspirin 81 mg 03/13/18 18:00 03/18/18 17:16 Aspirin Ec Tab* PO 81 mg 1800 JANICE Administration Docusate Sodium 100 mg 03/13/18 21:00 03/18/18 08:07 Colace Cap* PO 100 mg BID JANICE Administration Magnesium Hydroxide 30 ml 03/13/18 12:27 03/17/18 21:19 Milk Of Magnesia Liq* PO 30 ml Q6H PRN Administration CONSTIPATION Nebivolol 5 mg 03/13/18 18:00 03/18/18 17:16 Bystolic Tab (Nf) PO 5 mg 1800 JANICE Administration Omeprazole 20 mg 03/14/18 06:00 03/18/18 04:29 Prilosec Cap* PO 20 mg 0600 JANICE Administration Oxycodone/Acetaminophen 1 tab 03/13/18 12:31 03/18/18 16:16 Percocet 5/325 Tab* PO 1 tab Q4H PRN Administration PAIN - MODERATE TO SEVERE Oxycodone/Acetaminophen 2 tab 03/13/18 12:34 03/18/18 12:14 Percocet 5/325 Tab* PO 2 tab Q4H PRN Administration PAIN - SEVERE Senna 2 tab 03/18/18 21:00 Senokot Tab* PO BEDTIME JANICE Sertraline HCl 50 mg 03/14/18 09:00 03/18/18 08:07 Zoloft* PO 50 mg DAILY JANICE Administration Warfarin Sodium 2 mg 03/18/18 17:00 03/18/18 16:18 Coumadin Tab(*) PO 2 mg DAILY@1700 JANICE Administration Protocol Vital Signs: Vital Signs Temp Pulse Resp BP Pulse Ox 97.9 F 80 18 131/71 97 03/18/18 15:17 03/18/18 15:17 03/18/18 16:16 03/18/18 15:17 03/18/18 15:33 Lab Results: Laboratory Results - last 24 hr 03/18/18 05:32 INR (Anticoag Therapy) 3.18 H Exam: GENERAL: Alert, oriented, in no distress LUNGS: Clear bilaterally HEART: Reg rhythm ABDOMEN: Soft, + BS EXTREMITIES: Knee wounds c/d/i NEUROLOGIC: oriented. Sensation intact. Muscle strength about 4/5 in LEs able to dorsiflex bilaterally Assessment/Plan: 1. Bilateral TKR: WBAT. PT/OT 2. History of TIA in 2012: ASA/Bystolic. Will likely resume Cozaar 3. Depression: Zoloft 4. DVT Prophylaxis: INR therapeutic, adjusted Coumadin 5. Advanced Directives: Full Code 6. Constipation: Make Senna scheduled, not PRN. Add Miralax 03/18/18 17:19
[2018-03-18] MEDS ORDERED: Polyethylene Glycol 3350* 17 GM PACKET PO PRN (17:20)
[2018-03-18] MEDS: Senna TAB PO SCH (20:04)
[2018-03-19] MEDS: oxyCODONE/Acetamin 5/325 MG* TAB PO PRN ×5 (03:27→20:34)
[2018-03-19] MEDS: Omeprazole CAP* 20 MG PO SCH (06:27)
[2018-03-19] MEDS: Acetaminophen TAB* 325 MG PO PRN (06:31)
[2018-03-19] MEDS: Sertraline* 50 MG TAB PO SCH (09:04)
[2018-03-19] MEDS: Docusate CAP* 100 MG PO SCH ×2 (09:04→20:33)
--- NOTE | 2018-03-19 12:27 | PMRUTEAM ---
PMRU: Team Meeting Current Status: Nursing: Current Status Skin Deviations [Bilateral Bruise Calf] Skin Deviations [Right Other Buttocks] Skin Deviations [Right Lateral Bruise Calf] Skin Deviations [Buttocks] Abrasion Skin Deviations [Bilateral Incision Knee] Skin Deviation Description [ red raised ~1.5 in narrow area Right Buttocks] Skin Deviation Description [ healed Buttocks] Skin Deviation Description [ intact with clips. open to air. no redness or Bilateral Knee] warmth noted Bladder Current Status using urinal to void, also can be independent in br Bowel Current Status bm this am Nutrition Current Status appetite improving Medication Current Status percocet and cryounits for pain Physical Therapy: Current Status Bed Mobility Assistance Supervision,Mod Assist Transfer Moblility Assistance Supervision,Contact Guard Assist Transfer/Bed Mobility Rolling Walker Recommended Devices Transfer Mobility Comment OOB S x 1. mod x 1 into bed Ambulation Assistance Supervision Ambulation Assistive Devices Rolling Walker Number of Feet Patient 150 x 2 Ambulated Ambulation Comment slow and steady step to type gait. Stairs Assistance Supervision,Contact Guard Assist Stairs Recommended Devices Two Rails Number of Stairs 2x2, 3x3 Curb Not Tested Objective Comments initiated stair training this date on therapy stairs, completing ascent and descent with each leg lead. patient needs cuing to avoid circumduction. Occupational Therapy: Current Status Upper Body Dressing Supervision Upper Body Dressing Progress setupA Lower Body Dressing Supervision Lower Body Dressing Progress setup/supervision Bathing Supervision Bathing Progress seated with long handled sponge Toileting Supervision Toilet Transfer Supervision Shower Transfer Supervision Shower Transfer Progress w/c to/from shower bench +grab bar Eating Ind with Adaptive Equip Eating Progress dentures Rec Therapy: Current Status Summary of Assessment and Pt. was open to conversation - pleasant and Clinical Impression cooperative. Pt. identified with interests and involvement prior to admission. Pt. was with his and she contributed to our conversation as well. Pt. was open to continued leisure visits. Treatment Goals Pt. will engage in leisure activities while on the unit. Treatment Plan Provide RT services and encourage involvement. Social Work: Current Status Discharge Plan return home with home care svs and family support Potential for Family Training pt's is involved and supportive Anticipated Discharge Home Destination Discharge With home care svs and family support Nutrition: Current Status Monitoring pt reports that his appetite is doing a bit better , mostly d/t being offered alternate menu items, such as hamburgers. Regular diet appropriate; lactose intolerance per pt report, so no cow's milk (regular or chocolate) offered to drink. Staff encouraging more fluids d/t concentrated urine and hard BMs. He is offered flavored water and will be offered sweetened, flavored iced tea on L-D trays per his preference. No further Coumadin/vit K education necessary, as he has no questions re: education provided on 03/12. Plan to follow weekly prior to interdisciplinary team meetings. Goals: Physical Therapy: Initial Goals Bed Mobility Assistance Independent Transfer Mobility Assistance Independent Transfer/Bed Mobility Rolling Walker Recommended Devices Ambulation Independent Ambulation Recommended Devices Rolling Walker Ambulation Distance 150 Stairs Assistance Contact Guard Assist Stair Recommended Devices One Rail Number of Stairs 6 Home Exercise Program Independent Assistance Physical Therapy: Updated Goals Bed Mobility Assistance Independent Transfer Mobility Assistance Independent Transfer/Bed Mobility Rolling Walker Recommended Devices Ambulation Assistance Independent Ambulation Assistive Devices Rolling Walker Ambulation Distance (ft) 150 Stairs Assistance Independent Stairs Recommended Devices One Rail,Two Rails Number of Stairs 6 Home Exercise Program Independent Assistance Occupational Therapy: Initial Goals Goals to be Completed in (Days 7-10 ) Upper Body Bathing Routine Independent Lower Body Bathing Routine Modified Independent with Upper Body Dressing Routine Independent Lower Body Dressing Routine Modified Independent with Toilet Hygeine and Clothing Modified Independent with Management Routine Toilet Transfer Routine Modified Independent with Step-In Shower Transfer Modified Independent with Routine Functional Transfers for ADL Modified Independent with Grooming Routine Independent Feeding Routine Modified Independent with Nursing: Goals Bladder Goal independent Bowel Goal independent Nutrition Goal 100% of all meals consumed Medication Goal independent Nutrition: Goals Intervention Goals 1. adequate po intake to support post-op healing and lean body mass without add'l wt gain 2. regulation of post-op bowel pattern; no further constipation (or diarrhea) 3. pt questions re: Coumadin/vit K education will be addressed prior to d/c as needed. Social Work: Goals Discharge Plan return home with home care svs and family support Potential for Family Training pt's is involved and supportive Anticipated Discharge Home Destination Discharge With home care svs and family support Care Plan: Care Plan ADL's - Improve/Maintain Start: 03/13/18 14:56 Freq: DAILY Status: Active Target: Protocol: Activity Type Activity Date Activity User E-Sign Co-Sign Detail Recorded Client Recorded Date Recorded By Document 03/19/18 09:30 [id number] [id number] 03/19/18 09:31 [id number] 03/19/18 09:30 PMRU Outcome: ADL's/ADL Transfers Orders/Interventions Occupational Therapy Evaluation & Treatment Communication Tool in Patient Room Device Yes Address Deficits Secondary To: Elias TKA Patient to receive OT 5x/wk for 60-120 Therex min/day Self Care Management Group Therapy UE/LE ADL's with Assist Yes: Mo ADL Transfers with Assist Yes: Mo Toileting: Transfers,Clothing Management Yes: Mo ,Hygeine w/Assist Light Kitchen/Laundry w/Assist No Progression Toward Outcome/Goals Progressing Outcome/Goals Met Pt participated well in ADL treatment session, supervision for all aspects of ADL routine without use of AE for dressing , use of long handled sponge to wash feet in shower without assistance. DVT Prophylaxis- Improve/Maintain Start: 03/13/18 14:24 Freq: QSHIFT Status: Active Target: Protocol: Activity Type Activity Date Activity User E-Sign Co-Sign Detail Recorded Client Recorded Date Recorded By Document 03/19/18 08:50 [id number] [id number] 03/19/18 08:53 [id number] 03/19/18 08:50 PMRU Outcome: DVT Prophylaxis Outcome/Goals Remains Free of DVT Complies with DVT Prophylaxis /Treatment Demonstrates Knowledge of DVT Prevention/ Treatment Other Progression Toward Outcome/Goals Progressing Discharge Planning - Improve/Maintain Start: 03/13/18 14:24 Freq: DAILY Status: Active Target: Protocol: Activity Type Activity Date Activity User E-Sign Co-Sign Detail Recorded Client Recorded Date Recorded By Document 03/18/18 23:54 [id number] [email or web address] 03/18/18 23:54 [id number] 03/18/18 23:54 PMRU Outcome: Discharge Planning Update Patient Family No Outcome/Goals Demonstrates Understanding of Discharge Plan Progression Toward Outcome/Goals Progressing Education-Improve/Maintain Start: 03/13/18 14:24 Freq: QSHIFT Status: Active Target: Protocol: Activity Type Activity Date Activity User E-Sign Co-Sign Detail Recorded Client Recorded Date Recorded By Document 03/19/18 08:50 [id number] [id number] 03/19/18 08:53 [id number] 03/19/18 08:50 PMRU Outcome: Education Outcome/Goals Encourage Questions Progression Toward Outcome/Goals Progressing /GI-Improve/Maintain Start: 03/13/18 14:24 Freq: QSHIFT Status: Active Target: Protocol: Activity Type Activity Date Activity User E-Sign Co-Sign Detail Recorded Client Recorded Date Recorded By Document 03/19/18 08:50 [id number] 03/19/18 08:53 [id number] 03/19/18 08:50 PMRU Outcome: Genitourinary/ Gastrointestinal Genitourinary- Outcome/Goals Maintain/ Achieve Urinary Continence Remain Free of Hospital- Acquired UTI Gastrointestinal-Outcome/Goals Maintain/ Achieve Bowel Regularity in Accordance with Pt's Baseline Prevent Constipation Laxatives as Ordered Progression Toward Outcome/Goals - Progressing Progression Toward Outcome/Goals - GI Progressing Outcome/Goals Met Comment pt used urinal and also ambulates to br Medication Administration Start: 03/13/18 14:24 Freq: QSHIFT Status: Active Target: Protocol: Activity Type Activity Date Activity User E-Sign Co-Sign Detail Recorded Client Recorded Date Recorded By Document 03/19/18 08:50 [id number] [id number] 03/19/18 08:53 [id number] 03/19/18 08:50 PMRU Outcome: Medication Administration Assess Patient Knowledge/Teach Med Yes Education for all Meds Outcome/Goals Patient Independent with Medication Administration at Home Demonstrates Understanding Progression Towards Outcome/Goals Progressing Is Patient Going Home on Lovenox? No Mobility- Improve/Maintain Start: 03/13/18 16:33 Freq: DAILY Status: Active Target: Protocol: Activity Type Activity Date Activity User E-Sign Co-Sign Detail Recorded Client Recorded Date Recorded By Document 03/16/18 16:03 [id number] 03/16/18 16:03 [id number] 03/16/18 16:03 PMRU Outcome: Mobility Physical Therapy Evaluation and Yes Treatment Activity OOB with Assistance Yes: CGAx1 WBAT Yes: WBAT Device Yes: FWW Assistance Yes: CGAx1 Patient to be seen 5x/wk for 60-120 min/ Therex day for: Mobility Training Gait Training W/C Mobility Balance Outcome/Goals Maintain/ Achieve Baseline Mobility Status Improve Mobility Status Demonstrates Proper Use of Assistive Devices Free from Complications of Immobility Progression Toward Outcome/Goals Progressing Outcome/Goals Met Improve Mobility Status Demonstrates Proper Use of Assistive Devices Bed Mobility Yes: Ind Transfers Yes: Mod I with FWW Gait x ft Yes: Mod I with FWW x150ft Up/Down Stairs Yes: CGA x6 steps with 1 rail With HEP Yes Pain/Comfort- Improve/Maintain Start: 03/13/18 14:24 Freq: QSHIFT Status: Complete Target: Protocol: Activity Type Activity Date Activity User E-Sign Co-Sign Detail Recorded Client Recorded Date Recorded By Document 03/19/18 08:50 [id number] 03/19/18 08:53 [id number] 03/19/18 08:50 PMRU Outcome: Pain/Comfort Outcome/Goals Demonstrates Knowledge and Use of Available Comfort Measures Achieves Acceptable Comfort/Pain Level as Determined by Patient/Condit Maintain Comfort Level Allowing Patient to Fully Participate in Rehab Progression Toward Outcome/Goals Progressing Outcome/Goals Met Demonstrates Knowledge and Use of Available Comfort Measures Achieves Acceptable Comfort/Pain Level as Determined by Patient/Condit Maintain Comfort Level Allowing Patient to Fully Participate in Rehab Safety- Improve/Maintain Start: 03/13/18 14:24 Freq: QSHIFT Status: Active Target: Protocol: Activity Type Activity Date Activity User E-Sign Co-Sign Detail Recorded Client Recorded Date Recorded By Document 03/19/18 08:50 [id number] Defend Your Head 03/19/18 08:53 [id number] 03/19/18 08:50 PMRU Outcome: Safety Outcome/Goals Remain Free of Injury or Harm Cooperates with Safety Measures for Least Restrictive Environment Prevent Falls/ Injury Progression Toward Outcome/Goals Progressing Outcome/Goals Met Comment patient medium risk. uses call knowles appropriately Skin- Improve/Maintain Start: 03/13/18 14:24 Freq: QSHIFT Status: Complete Target: Protocol: Activity Type Activity Date Activity User E-Sign Co-Sign Detail Recorded Client Recorded Date Recorded By Document 03/19/18 08:50 [email or web address] 03/19/18 08:53 [id number] 03/19/18 08:50 PMRU Outcome: Skin Skin Risk Level Medium Outcome/Goals Maintain/ Improve Skin Intergrity Free from Decubitus Surgical Incisions Healing Progression Toward Outcome/Goals Progressing Outcome/Goals Met Maintain/ Improve Skin Intergrity Surgical Incisions Healing Outcome/Goals Met Comment bilateral knee incisions intact with clips and open to air Medicine Note: Length of Stay: 3 days Anticipated Discharge Destination: Home Tentative Discharge Date: 03/22/18 Discharged to: home
[2018-03-19] MEDS: Warfarin TAB(*) 2 MG PO SCH (16:22)
--- NOTE | 2018-03-19 17:22 | PN ---
Progress Note Date of Service: 03/19/18 Note: JOANN Palacios CRISTINAJANIE was visited. Therapy notes read and reviewed. Canelo was discussed in interdisciplinary team rounds. He has improved a lot since last week. Will check INR in am, on Coumadin 2 mg. Had BM today Current Medications: Active Medications Generic Name Dose Route Start Last Admin Trade Name Freq PRN Reason Stop Dose Admin Acetaminophen 650 mg 03/13/18 12:27 03/19/18 06:31 Tylenol Tab* PO 650 mg Q6H PRN Administration FEVER/PAIN Aspirin 81 mg 03/13/18 18:00 03/18/18 17:16 Aspirin Ec Tab* PO 81 mg 1800 JANICE Administration Docusate Sodium 100 mg 03/13/18 21:00 03/19/18 09:04 Colace Cap* PO 100 mg BID JANICE Administration Magnesium Hydroxide 30 ml 03/13/18 12:27 03/17/18 21:19 Milk Of Magnesia Liq* PO 30 ml Q6H PRN Administration CONSTIPATION Nebivolol 5 mg 03/13/18 18:00 03/18/18 17:16 Bystolic Tab (Nf) PO 5 mg 1800 JANICE Administration Omeprazole 20 mg 03/14/18 06:00 03/19/18 06:27 Prilosec Cap* PO 20 mg 0600 JANICE Administration Oxycodone/Acetaminophen 1 tab 03/13/18 12:31 03/19/18 03:27 Percocet 5/325 Tab* PO 1 tab Q4H PRN Administration PAIN - MODERATE TO SEVERE Oxycodone/Acetaminophen 2 tab 03/13/18 12:34 03/19/18 16:23 Percocet 5/325 Tab* PO 2 tab Q4H PRN Administration PAIN - SEVERE Polyethylene Glycol/Electrolytes 17 gm 03/18/18 17:20 Miralax* PO DAILY PRN CONSTIPATION Senna 2 tab 03/18/18 21:00 03/18/18 20:04 Senokot Tab* PO 2 tab BEDTIME JANICE Administration Sertraline HCl 50 mg 03/14/18 09:00 03/19/18 09:04 Zoloft* PO 50 mg DAILY JANICE Administration Warfarin Sodium 2 mg 03/18/18 17:00 03/19/18 16:22 Coumadin Tab(*) PO 2 mg DAILY@1700 JANICE Administration Protocol Vital Signs: Vital Signs Temp Pulse Resp BP Pulse Ox 98.2 F 81 18 139/75 100 03/19/18 15:31 03/19/18 15:31 03/19/18 16:23 03/19/18 15:31 03/19/18 15:59 Exam: GENERAL: Alert, oriented, in no distress LUNGS: Clear bilaterally HEART: Reg rhythm ABDOMEN: Soft, + BS EXTREMITIES: Knee wounds c/d/i NEUROLOGIC: oriented. Sensation intact. Muscle strength about 4/5 in LEs able to dorsiflex bilaterally Assessment/Plan: 1. Bilateral TKR: WBAT. PT/OT 2. History of TIA in 2013: ASA/Bystolic. Will resume Cozaar 3. Depression: Zoloft 4. DVT Prophylaxis: INR therapeutic, adjusted Coumadin 5. Advanced Directives: Full Code 6. Constipation: Senokot now scheduled. Had BM today 03/19/18 17:24
[2018-03-19] MEDS: Aspirin EC TAB* 81 MG TAB.EC PO SCH (17:24)
[2018-03-19] MEDS: CMC:Nebivolol TAB (NF) 2.5 MG TAB PO SCH (17:24)
[2018-03-19] MEDS: Senna TAB PO SCH (20:33)
[2018-03-20] MEDS: oxyCODONE/Acetamin 5/325 MG* TAB PO PRN ×6 (00:48→21:06)
[2018-03-20] MEDS: Omeprazole CAP* 20 MG PO SCH (05:11)
[2018-03-20 07:20] LABS: INR 3.22 (0.77-1.02)
[2018-03-20] MEDS: Sertraline* 50 MG TAB PO SCH (08:52)
[2018-03-20] MEDS: Docusate CAP* 100 MG PO SCH ×2 (08:52→21:05)
--- NOTE | 2018-03-20 15:26 | PN ---
Progress Note Date of Service: 03/20/18 Note: JOANN NIXON was visited. Therapy notes read and reviewed. He seems ready for discharge tomorrow. Otherwise, he has no complaints. INR still high. Will lower Coumadin to 1 mg Current Medications: Active Medications Generic Name Dose Route Start Last Admin Trade Name Freq PRN Reason Stop Dose Admin Acetaminophen 650 mg 03/13/18 12:27 03/19/18 06:31 Tylenol Tab* PO 650 mg Q6H PRN Administration FEVER/PAIN Aspirin 81 mg 03/13/18 18:00 03/19/18 17:24 Aspirin Ec Tab* PO 81 mg 1800 JANICE Administration Docusate Sodium 100 mg 03/13/18 21:00 03/20/18 08:52 Colace Cap* PO 100 mg BID JANICE Administration Losartan Potassium 50 mg 03/20/18 18:00 Cozaar Tab* PO 1800 JANICE Magnesium Hydroxide 30 ml 03/13/18 12:27 03/17/18 21:19 Milk Of Magnesia Liq* PO 30 ml Q6H PRN Administration CONSTIPATION Nebivolol 5 mg 03/13/18 18:00 03/19/18 17:24 Bystolic Tab (Nf) PO 5 mg 1800 JANICE Administration Omeprazole 20 mg 03/14/18 06:00 03/20/18 05:11 Prilosec Cap* PO 20 mg 0600 JANICE Administration Oxycodone/Acetaminophen 1 tab 03/13/18 12:31 03/19/18 03:27 Percocet 5/325 Tab* PO 1 tab Q4H PRN Administration PAIN - MODERATE TO SEVERE Oxycodone/Acetaminophen 2 tab 03/13/18 12:34 03/20/18 12:28 Percocet 5/325 Tab* PO 2 tab Q4H PRN Administration PAIN - SEVERE Polyethylene Glycol/Electrolytes 17 gm 03/18/18 17:20 Miralax* PO DAILY PRN CONSTIPATION Senna 2 tab 03/18/18 21:00 03/19/18 20:33 Senokot Tab* PO 2 tab BEDTIME JANICE Administration Sertraline HCl 50 mg 03/14/18 09:00 03/20/18 08:52 Zoloft* PO 50 mg DAILY JANICE Administration Warfarin Sodium 1 mg 03/20/18 17:00 Coumadin Tab(*) PO DAILY@1700 [facility] Protocol Vital Signs: Vital Signs Temp Pulse Resp BP Pulse Ox 97.5 F 65 16 135/74 99 03/20/18 05:10 03/20/18 05:10 03/20/18 14:32 03/20/18 05:10 03/20/18 05:10 Lab Results: Laboratory Results - last 24 hr 03/20/18 07:07 INR (Anticoag Therapy) 3.22 H Exam: GENERAL: Alert, oriented, in no distress LUNGS: Clear bilaterally HEART: Reg rhythm ABDOMEN: Soft, + BS EXTREMITIES: Knee wounds c/d/i NEUROLOGIC: oriented. Sensation intact. Muscle strength about 4/5 in LEs able to dorsiflex bilaterally Assessment/Plan: 1. Bilateral TKR: WBAT. PT/OT 2. History of TIA in 2012: ASA/Bystolic. Will resume Cozaar 3. Depression: Zoloft 4. DVT Prophylaxis: INR a little high, adjusted Coumadin 5. Advanced Directives: Full Code 6. Constipation: Senokot now scheduled. 03/20/18 15:26
[2018-03-20] MEDS ORDERED: Warfarin TAB(*) 1 MG PO SCH (17:00)
[2018-03-20] MEDS: Aspirin EC TAB* 81 MG TAB.EC PO SCH (17:58)
[2018-03-20] MEDS: CMC:Nebivolol TAB (NF) 2.5 MG TAB PO SCH (17:59)
[2018-03-20] MEDS ORDERED: Losartan TAB* 25 MG PO SCH (18:00)
[2018-03-20] MEDS: Senna TAB PO SCH (21:05)
[2018-03-21] MEDS: oxyCODONE/Acetamin 5/325 MG* TAB PO PRN ×3 (00:53→09:10)
[2018-03-21] MEDS: Omeprazole CAP* 20 MG PO SCH (05:13)
[2018-03-21 05:32] VITALS: BP 126/70
[2018-03-21 06:59] LABS: INR 2.66 (0.77-1.02)
[2018-03-21] MEDS: Docusate CAP* 100 MG PO SCH (09:10)
[2018-03-21] MEDS: Sertraline* 50 MG TAB PO SCH (09:10)
--- NOTE | 2018-03-21 11:20 | PN ---
Progress Note Date of Service: 03/21/18 Note: JOANN NIXON was visited. Therapy notes read and reviewed. INR Therapeutic. He is ready for discharge. He is post-op day #10 and I think sanam should stay in a bit longer. He will see ortho at [place] [facility] Current Medications: Active Medications Generic Name Dose Route Start Last Admin Trade Name Freq PRN Reason Stop Dose Admin Acetaminophen 650 mg 03/13/18 12:27 03/19/18 06:31 Tylenol Tab* PO 650 mg Q6H PRN Administration FEVER/PAIN Aspirin 81 mg 03/13/18 18:00 03/20/18 17:58 Aspirin Ec Tab* PO 81 mg 1800 JANICE Administration Docusate Sodium 100 mg 03/13/18 21:00 03/21/18 09:10 Colace Cap* PO 100 mg BID JANICE Administration Losartan Potassium 50 mg 03/20/18 18:00 03/20/18 17:58 Cozaar Tab* PO 50 mg 1800 JANICE Administration Magnesium Hydroxide 30 ml 03/13/18 12:27 03/17/18 21:19 Milk Of Magnesia Liq* PO 30 ml Q6H PRN Administration CONSTIPATION Nebivolol 5 mg 03/13/18 18:00 03/20/18 17:59 Bystolic Tab (Nf) PO 5 mg 1800 JANICE Administration Omeprazole 20 mg 03/14/18 06:00 03/21/18 05:13 Prilosec Cap* PO 20 mg 0600 JANICE Administration Oxycodone/Acetaminophen 1 tab 03/13/18 12:31 03/19/18 03:27 Percocet 5/325 Tab* PO 1 tab Q4H PRN Administration PAIN - MODERATE TO SEVERE Oxycodone/Acetaminophen 2 tab 03/13/18 12:34 03/21/18 09:10 Percocet 5/325 Tab* PO 2 tab Q4H PRN Administration PAIN - SEVERE Polyethylene Glycol/Electrolytes 17 gm 03/18/18 17:20 Miralax* PO DAILY PRN CONSTIPATION Senna 2 tab 03/18/18 21:00 03/20/18 21:05 Senokot Tab* PO 2 tab BEDTIME JANICE Administration Sertraline HCl 50 mg 03/14/18 09:00 03/21/18 09:10 Zoloft* PO 50 mg DAILY JANICE Administration Warfarin Sodium 1 mg 03/20/18 17:00 03/20/18 16:42 Coumadin Tab(*) PO 1 mg DAILY@1700 [facility] Administration Protocol Vital Signs: Vital Signs Temp Pulse Resp BP Pulse Ox 98.0 F 65 16 126/70 98 03/21/18 05:12 03/21/18 05:12 03/21/18 09:12 03/21/18 05:12 03/21/18 05:12 Lab Results: Laboratory Results - last 24 hr 03/21/18 06:28 INR (Anticoag Therapy) 2.66 H Exam: GENERAL: Alert, oriented, in no distress LUNGS: Clear bilaterally HEART: Reg rhythm ABDOMEN: Soft, + BS EXTREMITIES: Knee wounds c/d/i NEUROLOGIC: oriented. Sensation intact. Muscle strength about 4/5 in LEs able to dorsiflex bilaterally Assessment/Plan: 1. Bilateral TKR: WBAT. PT/OT 2. History of TIA in 2012: ASA/Bystolic. Back on Cozaar 3. Depression: Zoloft 4. DVT Prophylaxis: Coumadin 5. Advanced Directives: Full Code 6. Constipation: Senokot now scheduled. 7. Disposition: Home today 03/21/18 11:20
--- NOTE | 2018-03-23 06:12 | DS ---
CC: Dr. Kayden Belle* DISCHARGE SUMMARY: DATE OF ADMISSION: 03/13/18 DATE OF DISCHARGE: 03/21/18 DISCHARGE DIAGNOSES: 1. Bilateral total knee replacement. 2. History of TIA, 2013. 3. Gastroesophageal reflux disease. 4. Anxiety. 5. Hypertension. HISTORY OF ILLNESS AND HOSPITAL COURSE: For complete history of the events leading up to his rehab stay, please see the history and physical dictated by me on 03/13/18. While on the rehab unit, the patient was medically stable. He was maintained on Coumadin for DVT prophylaxis. His blood pressure was stable. His pain was treated adequately with oral analgesics. His wounds appeared to be clean and dry throughout his rehab stay. The patient was seen by both Physical Therapy and Occupational Therapy and made good gains with both disciplines. With Physical Therapy at the time of admission, the patient required moderate amount of assistance to transfer. He could ambulate with two assist, 15 feet. With Occupational Therapy, he at the time of admission was min assist for upper body dressing, total assistance for lower body dressing. Moderate amount of assistance for bathing. Total assistance for toileting. By the time of discharge, the patient was independent in transfers, independent ambulating with rolling walker. He could walk 300 feet. He was independent going up and down stairs, independent with all of his activities of daily living. The patient was discharged home on 03/21/18. DISCHARGE DIET: Regular. DISCHARGE MEDICATIONS: 1. Coumadin 1 mg daily or as directed. 2. Aspirin 81 mg daily. 3. Cozaar 50 mg daily at 6 p.m. 4. Bystolic 5 mg daily at 6 p.m. 5. Omeprazole 20 mg daily in the morning. 6. Percocet 1 to 2 tablets every 4 hours as needed. 7. Zoloft 50 mg daily. SERVICES AFTER DISCHARGE: The patient will have outpatient physical therapy at [facility]. Follow up with Dr. Kayden Belle, his primary care doctor as well as with Dr. Derrek Diaz. He will also follow up with [facility] on 03/25/18 for stable removal. TIME SPENT: Total time for this discharge was approximately 50 minutes. Greater than half of that was spent with the patient and his discussing post rehab therapies, medications, and opioid use and disposal. [id number]/[facility] #: [id number] [facility]
== END 2018-03-21 11:45 | disposition home or self-care (01) | DRG 561 ==
LOC: PMRU 11:21
PROVIDERS: ADMIT Physical Medicine & Rehabilitation; ATTEND Physical Medicine & Rehabilitation
PROC: F07Z5ZZ Bed Mobility Treatment (ICD-10-PCS; principal; 2018-03-13)
PROC: F07Z9ZZ Gait Training/Functional Ambulation Treatment (ICD-10-PCS; 2018-03-13)
PROC: F07Z8ZZ Transfer Training Treatment (ICD-10-PCS; 2018-03-13)
PROC: F08Z0ZZ Bathing/Showering Techniques Treatment (ICD-10-PCS; 2018-03-13)
PROC: F08Z1ZZ Dressing Techniques Treatment (ICD-10-PCS; 2018-03-13)
PROC: F08Z3FZ Feeding/Eating Treatment using Assistive, Adaptive, Supportive or Protective Equipment (ICD-10-PCS; 2018-03-13)
DX: Z47.1 Aftercare following joint replacement surgery (principal); Z96.653 Presence of artificial knee joint, bilateral; K21.9 Gastro-esophageal reflux disease without esophagitis; F41.9 Anxiety disorder, unspecified; I10 Essential (primary) hypertension; E78.5 Hyperlipidemia, unspecified; K59.00 Constipation, unspecified; Z86.73 Personal history of transient ischemic attack (TIA), and cerebral infarction without residual deficits; Z79.82 Long term (current) use of aspirin; Z79.899 Other long term (current) drug therapy; Z88.5 Allergy status to narcotic agent; Z88.8 Allergy status to other drugs, medicaments and biological substances; Z88.6 Allergy status to analgesic agent; Z88.1 Allergy status to other antibiotic agents; Z91.011 Allergy to milk products
CPT/HCPCS: 36415; 80053; 85025; 85610; A9270-GY

== ENCOUNTER 2021-04-13 05:41 | Observation (INO) ==
[2021-04-13] MEDS ORDERED: Lactated Ringers 1000 ml BAG 1,000 ML IV SCH (06:00)
[2021-04-13] MEDS ORDERED: Famotidine IV 10 MG/ML 2 ml VIAL (20 mg) IV ONE (06:00)
[2021-04-13] MEDS ORDERED: Buffered Lidocaine 1% SYRIN 1 ml INTRADERM ONE ×2 (06:00→06:32)
[2021-04-13] MEDS ORDERED: Famotidine IV 10 MG/ML 2 ml VIAL (20 mg) ONE (06:13)
[2021-04-13] MEDS ORDERED: Lidocaine 2% PF 5 ML VIAL ONE (06:39)
[2021-04-13] MEDS ORDERED: fentaNYL 100 mcg/2 ml 50 MCG/ML VIAL ONE (06:40)
[2021-04-13] MEDS ORDERED: Propofol 10 MG/ML 20 ML BTL ONE ×3 (06:40→09:44)
[2021-04-13] MEDS ORDERED: Remifentanil 2 MG VIAL ONE ×2 (06:40→09:49)
[2021-04-13] MEDS ORDERED: Midazolam 5 mg/5 ml VIAL 1 mg/ml 5 ml VIAL (5 mg) ONE (06:46)
[2021-04-13] MEDS ORDERED: Rocuronium 50 mg VIAL 10 mg/ml 5 ml VIAL (50 mg) ONE (06:52)
[2021-04-13] MEDS ORDERED: Phenylephrine IV 10 MG/ML 1 ml VIAL ONE (06:53)
[2021-04-13] MEDS ORDERED: Vancomycin 1,750 MG in NS 0.9% 500 ml BAG 500 ML IVPB ONE (07:00)
[2021-04-13] MEDS ORDERED: Bupivacaine 0.25% SDV 30 ML ONE (07:27)
[2021-04-13] MEDS ORDERED: ceFAZolin VIAL VIAL ONE (07:27)
[2021-04-13] MEDS ORDERED: Nebivolol 2.5 mg TAB (NF) PO ONE (08:00)
[2021-04-13] MEDS ORDERED: Bupivacaine 0.5% SDV PF 30ML VIAL ONE (08:17)
[2021-04-13] MEDS ORDERED: Glycopyrrolate IV 0.2 MG/ML 1 ML VIAL ONE (08:33)
[2021-04-13] MEDS ORDERED: EPHEDrine (Pressors) 50 MG/ML VIAL ONE (08:36)
[2021-04-13] MEDS ORDERED: Dexamethasone IV 4 MG/ML VIAL 1 ml VIAL ONE (08:46)
[2021-04-13] MEDS ORDERED: BUPIVACAINE **LIPOSOME/PF 13.3 MG/ML (266MG/ 20ML) VIAL (RESTRICTED) INFIL ONE (09:00)
[2021-04-13] MEDS ORDERED: Ondansetron 4 mg VIAL 2 MG/ML 2 ml VIAL ONE (09:10)
[2021-04-13] MEDS ORDERED: Acetaminophen IV 1 GM/100ML 100 ML IV ONE (09:10)
[2021-04-13] MEDS ORDERED: Propofol 10 mg/ml 100 ML BTL 100 ML ONE (10:33)
[2021-04-13] MEDS ORDERED: Ondansetron 4 mg VIAL 2 MG/ML 2 ml VIAL IV PRN ×2 (12:15→12:33)
[2021-04-13] MEDS ORDERED: HYDROcodone/ACETAMIN 5/325 mg TAB PO PRN (12:15)
[2021-04-13] MEDS ORDERED: Naloxone 0.4 mg VIAL 0.4 mg/ml 1 ml VIAL IV PRN (12:33)
[2021-04-13] MEDS ORDERED: fentaNYL 100 mcg/2 ml 50 MCG/ML VIAL IV PRN (12:33)
[2021-04-13] MEDS: HYDROcodone/ACETAMIN 5/325 mg TAB PO PRN ×2 (15:10→20:30)
[2021-04-13] MEDS ORDERED: Magnesium Hydroxide LIQ 30 ML UDC PO PRN (15:22)
[2021-04-13] MEDS ORDERED: DULoxetine DR 30 mg CAP PO SCH (21:00)
[2021-04-14] MEDS ORDERED: Calcium Carb (TUMS) 500 mg CHEW TAB PO ONE (00:39)
[2021-04-14 06:47] LABS: ABS Lymphocytes 0.6 10^3/ul (1.0-4.8); ABS Neutrophils 12.8 10^3/ul (1.5-7.7); Hematocrit 46 % (42-52); Hemoglobin 16.1 g/dL (14.0-18.0); Lymphocyte % 3.9 %; Mean Corpuscular HGB Conc 35 g/dL (31-36); Mean Corpuscular Hemoglobin 30 pg (27-31); Mean Corpuscular Volume 87 fL (80-94); Platelet Count 170 10^3/uL (150-450); Red Blood Count 5.28 10^6 /uL (4.18-5.48); Red Cell Distribution Width 14 % (10-15); White Blood Count 14.4 10^3/uL (3.5-10.8)
[2021-04-14 07:03] LABS: Calcium 9.9 mg/dL (8.6-10.3); Potassium 4.8 mmol/L (3.5-5.0)
[2021-04-14] MEDS ORDERED: CMC:Nebivolol 2.5 mg TAB (NF) PO SCH (09:00)
[2021-04-14 11:43] VITALS: BP 149/86
[2021-04-14] MEDS: HYDROcodone/ACETAMIN 5/325 mg TAB PO PRN (12:44)
== END 2021-04-14 15:30 | disposition home or self-care (01) | DRG 460 ==
LOC: INTOOBSV 05:41 → AA 05:41 → SSU 12:15
PROVIDERS: ADMIT Neurological Surgery; ATTEND Hospitalist